=== PATIENT | male | born 1955 | race Caucasian/White ===

== ENCOUNTER 2022-02-20 12:08 | Inpatient (IN) | payer OTHER, MEDICARE ==
[2022-02-20 17:33] VITALS: BMI 23.1
[2022-02-20] MEDS ORDERED: Acetaminophen 325 MG TAB PO PRN (19:18)
[2022-02-20] MEDS ORDERED: predniSONE 5 MG TAB PO SCH (21:00)
[2022-02-20] MEDS: Megestrol Acetate 400 MG/10 ML UDCUP PO SCH (21:07)
[2022-02-20] MEDS: Lantus 1000 UNITS/10 ML VIAL SC SCH (21:08)
[2022-02-20] MEDS: Gabapentin 300 MG CAP PO SCH (21:08)
[2022-02-20] MEDS: Atorvastatin Calcium 40 MG TAB PO SCH (21:08)
[2022-02-20] MEDS: predniSONE 5 MG TAB PO SCH (21:09)
[2022-02-20] MEDS: Midodrine HCl 2.5 MG TAB PO SCH (21:10)
[2022-02-20] MEDS: metFORMIN 500 MG TAB PO SCH (21:10)
[2022-02-21 05:13] LABS: #Basophils 0.1 thou/uL (0.0-0.2); #Eosinphils 0.1 thou/uL (0.0-0.7); #Lymphocytes 2.2 thou/uL (1.20-3.40); #Monocytes 1.1 thou/uL (0.11-0.59); #Neutrophils 13.8 thou/uL (1.40-6.50); %Basophils 0.4 % (0.0-1.0); %Eosinophils 0.7 % (0.0-10.0); %Lymphocytes 12.6 % (21.0-51.0); %Monocytes 6.5 % (0.0-10.0); %Neutrophils 79.8 % (42.0-75.0); Hemoglobin 7.8 g/dL (14.0-18.0); Mean Corpuscular HGB CONC 32.5 g/dL (32.0-36.0); Mean Corpuscular Hemoglobin 29.7 pg (27.0-31.0); Mean Corpuscular Volume 91.4 fL (78.0-98.0); Mean Platelet Volume 8.8 fL (7.4-10.4); Platelet Count 250 thou/uL (130-400); RBC Distribution Width 15.4 % (11.5-14.5); Red Blood Cell (RBC) Count 2.63 mill/uL (4.70-6.10); White Blood Cell (WBC) Count 17.3 thou/uL (4.8-10.8)
[2022-02-21 05:31] LABS: ALT (SGPT) 8 U/L (8-55); AST (SGOT) 12 U/L (5-34); Albumin 2.8 g/dL (3.4-4.8); Alkaline Phosphatase 64 U/L (40-110); Anion Gap 14 mmol/L (10-20); BUN (Urea Nitrogen) 22 mg/dL (8.4-25.7); Bilirubin, Total 0.3 mg/dL (0.2-1.2); Calc. Creatinine Clearance 87 mL/min (70-130); Calcium 8.1 mg/dL (7.8-10.44); Carbon Dioxide 20 mmol/L (23-31); Cardiac Risk 5.1 (Less than 4.5); Chloride 110 mmol/L (98-107); Cholesterol 117 mg/dl (< 200 Desired); Estimated GFR 91; Globulin 3.7 g/dL (2.4-3.5); Glucose 142 mg/dL (80-115); HDL Cholesterol 23 mg/dL (>60 Neg Risk); LDL Cholesterol, Calculated 61 mg/dL; Potassium 4.5 mmol/L (3.5-5.1); Protein, Total 6.5 g/dL (5.8-8.1); Sodium 139 mmol/L (136-145); Triglycerides 166 mg/dL (Less than 150)
[2022-02-21] MEDS: metFORMIN 500 MG TAB PO SCH ×2 (08:28→20:46)
[2022-02-21] MEDS: Midodrine HCl 2.5 MG TAB PO SCH ×3 (08:28→20:50)
[2022-02-21] MEDS: Gabapentin 300 MG CAP PO SCH ×2 (08:28→20:46)
[2022-02-21] MEDS: Aspirin 81 mg Enteric Coated Tablet PO SCH (08:29)
[2022-02-21] MEDS: glipiZIDE 5 MG TAB PO SCH ×2 (08:29→17:17)
[2022-02-21] MEDS: Megestrol Acetate 400 MG/10 ML UDCUP PO SCH ×2 (08:29→20:53)
[2022-02-21] MEDS: predniSONE 5 MG TAB PO SCH ×2 (08:29→20:46)
[2022-02-21 11:22] LABS: Hemoglobin A1c 8.3 % (4.0-6.0)
[2022-02-21] MEDS: HYDROcodone/Acetaminophen 5/325 mg Tablet PO PRN (14:25)
[2022-02-21] MEDS: Heparin 5,000 UNITS/ML VIAL SC SCH ×2 (14:26→20:51)
[2022-02-21] MEDS: Atorvastatin Calcium 40 MG TAB PO SCH (20:47)
[2022-02-21] MEDS: Lantus 1000 UNITS/10 ML VIAL SC SCH (20:51)
[2022-02-22] MEDS: Heparin 5,000 UNITS/ML VIAL SC SCH ×3 (08:06→20:06)
[2022-02-22] MEDS: Gabapentin 300 MG CAP PO SCH ×2 (08:06→20:21)
[2022-02-22] MEDS: Zinc Sulfate 220 MG CAP PO SCH (08:06)
[2022-02-22] MEDS: Megestrol Acetate 400 MG/10 ML UDCUP PO SCH ×2 (08:06→22:05)
[2022-02-22] MEDS: Aspirin 81 mg Enteric Coated Tablet PO SCH (08:06)
[2022-02-22] MEDS: metFORMIN 500 MG TAB PO SCH ×2 (08:07→20:20)
[2022-02-22] MEDS: glipiZIDE 5 MG TAB PO SCH ×2 (08:07→15:41)
[2022-02-22] MEDS: Midodrine HCl 2.5 MG TAB PO SCH ×3 (08:07→20:21)
[2022-02-22] MEDS: predniSONE 5 MG TAB PO SCH ×2 (08:07→20:20)
[2022-02-22] MEDS: HYDROcodone/Acetaminophen 5/325 mg Tablet PO PRN (17:50)
[2022-02-22] MEDS: Atorvastatin Calcium 40 MG TAB PO SCH (20:22)
[2022-02-22] MEDS: Lantus 1000 UNITS/10 ML VIAL SC SCH (20:32)
[2022-02-23] MEDS: HYDROcodone/Acetaminophen 5/325 mg Tablet PO PRN ×2 (09:00→19:16)
[2022-02-23] MEDS: Megestrol Acetate 400 MG/10 ML UDCUP PO SCH ×2 (09:00→20:39)
[2022-02-23] MEDS: Midodrine HCl 2.5 MG TAB PO SCH ×3 (09:00→20:38)
[2022-02-23] MEDS: Zinc Sulfate 220 MG CAP PO SCH (09:00)
[2022-02-23] MEDS: Aspirin 81 mg Enteric Coated Tablet PO SCH (09:01)
[2022-02-23] MEDS: Gabapentin 300 MG CAP PO SCH ×2 (09:01→20:35)
[2022-02-23] MEDS: Heparin 5,000 UNITS/ML VIAL SC SCH ×3 (09:01→20:19)
[2022-02-23] MEDS: glipiZIDE 5 MG TAB PO SCH ×2 (09:01→16:03)
[2022-02-23] MEDS: predniSONE 5 MG TAB PO SCH ×2 (09:02→20:37)
[2022-02-23] MEDS: metFORMIN 500 MG TAB PO SCH ×3 (09:02→21:02)
[2022-02-23] MEDS: Atorvastatin Calcium 40 MG TAB PO SCH (20:35)
[2022-02-23] MEDS: Lantus 1000 UNITS/10 ML VIAL SC SCH (21:01)
[2022-02-24] MEDS: Megestrol Acetate 400 MG/10 ML UDCUP PO SCH ×2 (08:12→21:36)
[2022-02-24] MEDS: Zinc Sulfate 220 MG CAP PO SCH (08:12)
[2022-02-24] MEDS: Midodrine HCl 2.5 MG TAB PO SCH ×3 (08:12→21:37)
[2022-02-24] MEDS: Gabapentin 300 MG CAP PO SCH ×2 (08:13→21:37)
[2022-02-24] MEDS: Aspirin 81 mg Enteric Coated Tablet PO SCH (08:13)
[2022-02-24] MEDS: Heparin 5,000 UNITS/ML VIAL SC SCH ×3 (08:13→21:41)
[2022-02-24] MEDS: predniSONE 5 MG TAB PO SCH ×2 (08:13→21:37)
[2022-02-24] MEDS: metFORMIN 500 MG TAB PO SCH ×2 (08:13→17:25)
[2022-02-24] MEDS: Lantus 1000 UNITS/10 ML VIAL SC SCH (08:14)
[2022-02-24] MEDS: HYDROcodone/Acetaminophen 5/325 mg Tablet PO PRN (21:38)
[2022-02-24] MEDS: Atorvastatin Calcium 40 MG TAB PO SCH (21:39)
[2022-02-25 05:40] LABS: #Basophils 0.1 thou/uL (0.0-0.2); #Eosinphils 0.1 thou/uL (0.0-0.7); #Lymphocytes 2.3 thou/uL (1.20-3.40); #Monocytes 0.9 thou/uL (0.11-0.59); #Neutrophils 12.6 thou/uL (1.40-6.50); %Basophils 0.7 % (0.0-1.0); %Eosinophils 0.5 % (0.0-10.0); %Lymphocytes 14.3 % (21.0-51.0); %Monocytes 5.4 % (0.0-10.0); %Neutrophils 79.1 % (42.0-75.0); Hemoglobin 8.6 g/dL (14.0-18.0); Mean Corpuscular HGB CONC 31.7 g/dL (32.0-36.0); Mean Corpuscular Volume 91.6 fL (78.0-98.0); Mean Platelet Volume 8.5 fL (7.4-10.4); Platelet Count 279 thou/uL (130-400); RBC Distribution Width 16.1 % (11.5-14.5); Red Blood Cell (RBC) Count 2.96 mill/uL (4.70-6.10); White Blood Cell (WBC) Count 15.9 thou/uL (4.8-10.8)
[2022-02-25 05:58] LABS: Anion Gap 17 mmol/L (10-20); BUN (Urea Nitrogen) 26 mg/dL (8.4-25.7); Calc. Creatinine Clearance 87 mL/min (70-130); Calcium 8.6 mg/dL (7.8-10.44); Carbon Dioxide 18 mmol/L (23-31); Chloride 110 mmol/L (98-107); Estimated GFR 91; Glucose 115 mg/dL (80-115); Potassium 4.9 mmol/L (3.5-5.1); Sodium 140 mmol/L (136-145)
[2022-02-25] MEDS: predniSONE 5 MG TAB PO SCH ×2 (08:14→21:42)
[2022-02-25] MEDS: Zinc Sulfate 220 MG CAP PO SCH (08:14)
[2022-02-25] MEDS: Aspirin 81 mg Enteric Coated Tablet PO SCH (08:14)
[2022-02-25] MEDS: Megestrol Acetate 400 MG/10 ML UDCUP PO SCH ×2 (08:14→21:42)
[2022-02-25] MEDS: Gabapentin 300 MG CAP PO SCH ×2 (08:14→21:42)
[2022-02-25] MEDS: metFORMIN 500 MG TAB PO SCH ×3 (08:14→17:06)
[2022-02-25] MEDS: Midodrine HCl 2.5 MG TAB PO SCH ×3 (08:15→21:41)
[2022-02-25] MEDS: Heparin 5,000 UNITS/ML VIAL SC SCH ×3 (08:15→21:41)
[2022-02-25] MEDS: Lantus 1000 UNITS/10 ML VIAL SC SCH (08:15)
[2022-02-25] MEDS: HYDROcodone/Acetaminophen 5/325 mg Tablet PO PRN (21:21)
[2022-02-25] MEDS: Atorvastatin Calcium 40 MG TAB PO SCH (21:42)
[2022-02-26] MEDS: Heparin 5,000 UNITS/ML VIAL SC SCH ×3 (08:03→21:36)
[2022-02-26] MEDS: Megestrol Acetate 400 MG/10 ML UDCUP PO SCH ×2 (08:07→21:36)
[2022-02-26] MEDS: Aspirin 81 mg Enteric Coated Tablet PO SCH (08:07)
[2022-02-26] MEDS: predniSONE 5 MG TAB PO SCH ×2 (08:08→21:37)
[2022-02-26] MEDS: Zinc Sulfate 220 MG CAP PO SCH (08:08)
[2022-02-26] MEDS: metFORMIN 500 MG TAB PO SCH ×2 (08:08→16:53)
[2022-02-26] MEDS: Gabapentin 300 MG CAP PO SCH ×2 (08:08→21:37)
[2022-02-26] MEDS: Midodrine HCl 2.5 MG TAB PO SCH ×3 (08:08→21:38)
[2022-02-26] MEDS: Lantus 1000 UNITS/10 ML VIAL SC SCH (08:08)
[2022-02-26] MEDS: HYDROcodone/Acetaminophen 5/325 mg Tablet PO PRN ×2 (12:12→21:38)
[2022-02-26] MEDS: Atorvastatin Calcium 40 MG TAB PO SCH (21:38)
[2022-02-27 05:23] LABS: #Basophils 0.1 thou/uL (0.0-0.2); #Eosinphils 0.2 thou/uL (0.0-0.7); #Lymphocytes 2.4 thou/uL (1.20-3.40); #Neutrophils 12.5 thou/uL (1.40-6.50); %Basophils 0.6 % (0.0-1.0); %Lymphocytes 14.6 % (21.0-51.0); %Monocytes 5.9 % (0.0-10.0); %Neutrophils 77.9 % (42.0-75.0); Hemoglobin 8.7 g/dL (14.0-18.0); Mean Corpuscular HGB CONC 31.4 g/dL (32.0-36.0); Mean Corpuscular Hemoglobin 29.1 pg (27.0-31.0); Mean Corpuscular Volume 92.7 fL (78.0-98.0); Mean Platelet Volume 8.5 fL (7.4-10.4); Platelet Count 264 thou/uL (130-400); RBC Distribution Width 16.6 % (11.5-14.5); Red Blood Cell (RBC) Count 2.99 mill/uL (4.70-6.10); White Blood Cell (WBC) Count 16.1 thou/uL (4.8-10.8)
[2022-02-27 05:39] LABS: Anion Gap 16 mmol/L (10-20); BUN (Urea Nitrogen) 34 mg/dL (8.4-25.7); CRP (Inflammatory) 2.11 mg/dL (= or < 0.5); Calc. Creatinine Clearance 93 mL/min (70-130); Calcium 8.4 mg/dL (7.8-10.44); Carbon Dioxide 18 mmol/L (23-31); Chloride 112 mmol/L (98-107); Estimated GFR 96; Glucose 146 mg/dL (80-115); Potassium 4.9 mmol/L (3.5-5.1); Sodium 141 mmol/L (136-145)
[2022-02-27] MEDS: Midodrine HCl 2.5 MG TAB PO SCH ×3 (08:29→20:55)
[2022-02-27] MEDS: Aspirin 81 mg Enteric Coated Tablet PO SCH (08:29)
[2022-02-27] MEDS: Zinc Sulfate 220 MG CAP PO SCH (08:29)
[2022-02-27] MEDS: Gabapentin 300 MG CAP PO SCH ×2 (08:29→20:54)
[2022-02-27] MEDS: metFORMIN 500 MG TAB PO SCH ×2 (08:29→17:14)
[2022-02-27] MEDS: Lantus 1000 UNITS/10 ML VIAL SC SCH (08:30)
[2022-02-27] MEDS: Heparin 5,000 UNITS/ML VIAL SC SCH ×3 (08:30→20:55)
[2022-02-27] MEDS: predniSONE 5 MG TAB PO SCH ×2 (08:30→20:53)
[2022-02-27] MEDS: Megestrol Acetate 400 MG/10 ML UDCUP PO SCH ×2 (08:30→20:53)
[2022-02-27] MEDS: HYDROcodone/Acetaminophen 5/325 mg Tablet PO PRN (08:33)
[2022-02-27] MEDS: Atorvastatin Calcium 40 MG TAB PO SCH (20:54)
[2022-02-28] MEDS ORDERED: Ondansetron ODT 4 MG TAB ONE (05:36)
[2022-02-28] MEDS: Ondansetron ODT 4 MG TAB PO PRN ×3 (05:44→21:17)
[2022-02-28] MEDS: HYDROcodone/Acetaminophen 5/325 mg Tablet PO PRN ×2 (06:02→09:27)
[2022-02-28] MEDS: Zinc Sulfate 220 MG CAP PO SCH (08:27)
[2022-02-28] MEDS: Aspirin 81 mg Enteric Coated Tablet PO SCH (08:27)
[2022-02-28] MEDS: predniSONE 5 MG TAB PO SCH ×2 (08:27→21:15)
[2022-02-28] MEDS: Heparin 5,000 UNITS/ML VIAL SC SCH ×3 (08:27→21:15)
[2022-02-28] MEDS: Megestrol Acetate 400 MG/10 ML UDCUP PO SCH ×2 (08:27→21:15)
[2022-02-28] MEDS: Gabapentin 300 MG CAP PO SCH ×2 (08:27→21:14)
[2022-02-28] MEDS: Midodrine HCl 2.5 MG TAB PO SCH ×3 (08:27→21:14)
[2022-02-28] MEDS: metFORMIN 500 MG TAB PO SCH ×2 (08:27→17:17)
[2022-02-28] MEDS: Lantus 1000 UNITS/10 ML VIAL SC SCH (08:28)
[2022-02-28] MEDS ORDERED: HYDROcodone/Acetaminophen 5/325 mg Tablet PO SCH (09:30)
[2022-02-28] MEDS: Atorvastatin Calcium 40 MG TAB PO SCH (21:14)
[2022-03-01] MEDS: Lantus 1000 UNITS/10 ML VIAL SC SCH (09:18)
[2022-03-01] MEDS: Heparin 5,000 UNITS/ML VIAL SC SCH ×4 (09:18→22:37)
[2022-03-01] MEDS: Midodrine HCl 2.5 MG TAB PO SCH ×4 (09:19→22:32)
[2022-03-01] MEDS: Zinc Sulfate 220 MG CAP PO SCH (09:19)
[2022-03-01] MEDS: metFORMIN 500 MG TAB PO SCH ×2 (09:19→17:07)
[2022-03-01] MEDS: Aspirin 81 mg Enteric Coated Tablet PO SCH (09:19)
[2022-03-01] MEDS: Gabapentin 300 MG CAP PO SCH ×2 (09:19→20:29)
[2022-03-01] MEDS: Megestrol Acetate 400 MG/10 ML UDCUP PO SCH ×2 (09:19→20:43)
[2022-03-01] MEDS: predniSONE 5 MG TAB PO SCH ×2 (09:19→20:31)
[2022-03-01] MEDS: Atorvastatin Calcium 40 MG TAB PO SCH (20:30)
[2022-03-01] MEDS: HYDROcodone/Acetaminophen 5/325 mg Tablet PO PRN (22:36)
[2022-03-02] MEDS: Megestrol Acetate 400 MG/10 ML UDCUP PO SCH ×2 (09:31→20:56)
[2022-03-02] MEDS: Zinc Sulfate 220 MG CAP PO SCH (09:32)
[2022-03-02] MEDS: Aspirin 81 mg Enteric Coated Tablet PO SCH (09:32)
[2022-03-02] MEDS: Midodrine HCl 2.5 MG TAB PO SCH ×3 (09:32→20:56)
[2022-03-02] MEDS: predniSONE 5 MG TAB PO SCH ×2 (09:32→20:56)
[2022-03-02] MEDS: metFORMIN 500 MG TAB PO SCH ×2 (09:32→17:17)
[2022-03-02] MEDS: Heparin 5,000 UNITS/ML VIAL SC SCH ×3 (09:32→21:35)
[2022-03-02] MEDS: Gabapentin 300 MG CAP PO SCH ×2 (09:32→20:55)
[2022-03-02] MEDS: Lantus 1000 UNITS/10 ML VIAL SC SCH (09:33)
[2022-03-02] MEDS: HYDROcodone/Acetaminophen 5/325 mg Tablet PO PRN (17:17)
[2022-03-02] MEDS: Atorvastatin Calcium 40 MG TAB PO SCH (20:55)
[2022-03-03 07:00] VITALS: TEMP 98.1
[2022-03-03] MEDS: predniSONE 5 MG TAB PO SCH (08:14)
[2022-03-03] MEDS: Gabapentin 300 MG CAP PO SCH (08:15)
[2022-03-03] MEDS: Zinc Sulfate 220 MG CAP PO SCH (08:15)
[2022-03-03] MEDS: metFORMIN 500 MG TAB PO SCH (08:15)
[2022-03-03] MEDS: Lantus 1000 UNITS/10 ML VIAL SC SCH (08:15)
[2022-03-03] MEDS: Midodrine HCl 2.5 MG TAB PO SCH ×2 (08:15→14:55)
[2022-03-03] MEDS: Megestrol Acetate 400 MG/10 ML UDCUP PO SCH (08:15)
[2022-03-03] MEDS: Aspirin 81 mg Enteric Coated Tablet PO SCH (08:15)
[2022-03-03] MEDS: Heparin 5,000 UNITS/ML VIAL SC SCH ×2 (08:16→14:53)
[2022-03-03] MEDS: HYDROcodone/Acetaminophen 5/325 mg Tablet PO PRN (10:56)
[2022-03-03 14:58] VITALS: BP 91/46
== END 2022-03-03 15:15 | disposition left against medical advice (07) | DRG 947 ==
LOC: MADMS 17:22
PROVIDERS: ADMIT Family Medicine; ATTEND Family Medicine
DX: R53.1 Weakness (principal); L89.154 Pressure ulcer of sacral region, stage 4; E27.40 Unspecified adrenocortical insufficiency; Z20.822 Contact with and (suspected) exposure to COVID-19; R53.81 Other malaise; E78.5 Hyperlipidemia, unspecified; D64.9 Anemia, unspecified; R33.9 Retention of urine, unspecified; I10 Essential (primary) hypertension; E11.9 Type 2 diabetes mellitus without complications; Z79.82 Long term (current) use of aspirin; Z79.899 Other long term (current) drug therapy; Z79.4 Long term (current) use of insulin; Z79.84 Long term (current) use of oral hypoglycemic drugs; Z79.52 Long term (current) use of systemic steroids; Z89.432 Acquired absence of left foot
CPT/HCPCS: 36415; 36416; 80048; 80053; 80061; 83036; 84443; 85025; 86140; 90471; 90732; 97602; G0009; J1644; J1815; J1956; J7512; Q0162; U0003; U0005

== ENCOUNTER 2022-03-12 17:36 | Inpatient (IN) | payer OTHER, MEDICARE ==
[2022-03-12] MEDS ORDERED: Dextrose 50% Abboject 50 ML SYRINGE IVP PRN (21:15)
[2022-03-12] MEDS ORDERED: Dextrose 5% in Water 1,000 ML IV PRN (21:15)
[2022-03-12] MEDS: metroNIDAZOLE 250 MG TAB PO SCH (21:20)
[2022-03-12] MEDS: HYDROcodone/Acetaminophen 5/325 mg Tablet PO PRN (21:21)
[2022-03-12] MEDS: HumaLOG 300 UNITS/3 ML VIAL SC PRN (21:36)
[2022-03-12] MEDS: Vancomycin HCl 1 GM in Sodium Chloride 0.9% 250 ML 250 ML IVPB SCH (22:55)
[2022-03-13] MEDS: Cefepime 1 GM in Sodium Chloride 0.9% 100 ML IVPB SCH ×4 (01:31→23:28)
[2022-03-13] MEDS: HYDROcodone/Acetaminophen 5/325 mg Tablet PO PRN ×4 (02:41→22:07)
[2022-03-13 05:24] LABS: #Basophils 0.1 thou/uL (0.0-0.2); #Eosinphils 0.5 thou/uL (0.0-0.7); #Lymphocytes 2.1 thou/uL (1.20-3.40); #Monocytes 0.8 thou/uL (0.11-0.59); %Eosinophils 5.7 % (0.0-10.0); %Lymphocytes 21.8 % (21.0-51.0); %Monocytes 8.6 % (0.0-10.0); %Neutrophils 62.9 % (42.0-75.0); Hemoglobin 8.9 g/dL (14.0-18.0); Mean Corpuscular HGB CONC 31.7 g/dL (32.0-36.0); Mean Corpuscular Hemoglobin 29.2 pg (27.0-31.0); Mean Corpuscular Volume 91.9 fL (78.0-98.0); Mean Platelet Volume 8.7 fL (7.4-10.4); Platelet Count 243 thou/uL (130-400); RBC Distribution Width 15.8 % (11.5-14.5); Red Blood Cell (RBC) Count 3.07 mill/uL (4.70-6.10); White Blood Cell (WBC) Count 9.5 thou/uL (4.8-10.8)
[2022-03-13 05:45] LABS: ALT (SGPT) 15 U/L (8-55); AST (SGOT) 16 U/L (5-34); Albumin 2.5 g/dL (3.4-4.8); Alkaline Phosphatase 71 U/L (40-110); Anion Gap 13 mmol/L (10-20); BUN (Urea Nitrogen) 10 mg/dL (8.4-25.7); Bilirubin, Total 0.2 mg/dL (0.2-1.2); Calc. Creatinine Clearance 121 mL/min (70-130); Calcium 8.1 mg/dL (7.8-10.44); Carbon Dioxide 19 mmol/L (23-31); Chloride 110 mmol/L (98-107); Estimated GFR 103; Globulin 3.4 g/dL (2.4-3.5); Glucose 146 mg/dL (80-115); Potassium 3.8 mmol/L (3.5-5.1); Protein, Total 5.9 g/dL (5.8-8.1); Sodium 138 mmol/L (136-145)
[2022-03-13] MEDS: metroNIDAZOLE 250 MG TAB PO SCH ×3 (06:10→21:13)
[2022-03-13] MEDS: Enoxaparin Sodium 40 MG/0.4 ML SYRINGE SC SCH (07:53)
[2022-03-13] MEDS ORDERED: metFORMIN 500 MG TAB PO SCH (08:00)
[2022-03-13] MEDS ORDERED: Enoxaparin Sodium 40 MG/0.4 ML SYRINGE SC SCH (09:00)
[2022-03-13] MEDS: Vancomycin HCl 1 GM in Sodium Chloride 0.9% 250 ML 250 ML IVPB SCH (10:47)
[2022-03-13] MEDS: metFORMIN 500 MG TAB PO SCH (16:21)
[2022-03-13] MEDS: HumaLOG 300 UNITS/3 ML VIAL SC PRN (21:11)
[2022-03-14] MEDS: Vancomycin HCl 1 GM in Sodium Chloride 0.9% 250 ML 250 ML IVPB SCH ×3 (00:19→22:35)
[2022-03-14] MEDS: HYDROcodone/Acetaminophen 5/325 mg Tablet PO PRN ×3 (05:37→20:47)
[2022-03-14] MEDS: metroNIDAZOLE 250 MG TAB PO SCH ×4 (05:37→20:42)
[2022-03-14] MEDS: Enoxaparin Sodium 40 MG/0.4 ML SYRINGE SC SCH (08:14)
[2022-03-14] MEDS: metFORMIN 500 MG TAB PO SCH ×2 (08:14→16:45)
[2022-03-14] MEDS: Cefepime 1 GM in Sodium Chloride 0.9% 100 ML IVPB SCH ×2 (08:14→16:45)
[2022-03-14] MEDS: HumaLOG 300 UNITS/3 ML VIAL SC PRN (08:15)
[2022-03-14] MEDS ORDERED: HYDROcodone/Acetaminophen 5/325 mg Tablet PO SCH (10:00)
[2022-03-14 10:20] LABS: Vancomycin, Trough 18.6 ug/mL
[2022-03-15] MEDS: Cefepime 1 GM in Sodium Chloride 0.9% 100 ML IVPB SCH ×3 (00:45→17:00)
[2022-03-15] MEDS: metroNIDAZOLE 250 MG TAB PO SCH ×3 (06:05→20:42)
[2022-03-15] MEDS: metFORMIN 500 MG TAB PO SCH ×2 (08:42→17:00)
[2022-03-15] MEDS: Enoxaparin Sodium 40 MG/0.4 ML SYRINGE SC SCH (08:43)
[2022-03-15] MEDS: HumaLOG 300 UNITS/3 ML VIAL SC PRN ×2 (08:43→21:22)
[2022-03-15] MEDS: Vancomycin HCl 1 GM in Sodium Chloride 0.9% 250 ML 250 ML IVPB SCH ×2 (11:55→22:56)
[2022-03-15] MEDS: HYDROcodone/Acetaminophen 5/325 mg Tablet PO PRN ×2 (12:11→23:58)
[2022-03-15] MEDS: Midodrine HCl 2.5 MG TAB PO SCH ×2 (14:00→21:04)
[2022-03-15] MEDS: Mirtazapine 15 MG TAB PO SCH (20:43)
[2022-03-15] MEDS: Gabapentin 300 MG CAP PO SCH (20:44)
[2022-03-16] MEDS: Cefepime 1 GM in Sodium Chloride 0.9% 100 ML IVPB SCH ×3 (00:55→16:02)
[2022-03-16] MEDS: metroNIDAZOLE 250 MG TAB PO SCH ×4 (05:46→20:41)
[2022-03-16] MEDS: Midodrine HCl 2.5 MG TAB PO SCH ×4 (05:58→21:17)
[2022-03-16] MEDS: metFORMIN 500 MG TAB PO SCH ×2 (08:28→16:02)
[2022-03-16] MEDS: Enoxaparin Sodium 40 MG/0.4 ML SYRINGE SC SCH (08:28)
[2022-03-16] MEDS: Gabapentin 300 MG CAP PO SCH ×2 (08:28→20:39)
[2022-03-16] MEDS: HumaLOG 300 UNITS/3 ML VIAL SC PRN ×2 (09:33→21:59)
[2022-03-16] MEDS: Vancomycin HCl 1 GM in Sodium Chloride 0.9% 250 ML 250 ML IVPB SCH ×2 (11:28→22:16)
[2022-03-16] MEDS: HYDROcodone/Acetaminophen 5/325 mg Tablet PO PRN ×2 (17:16→22:14)
[2022-03-16] MEDS: Mirtazapine 15 MG TAB PO SCH (20:41)
[2022-03-17] MEDS: Cefepime 1 GM in Sodium Chloride 0.9% 100 ML IVPB SCH ×3 (00:15→16:44)
[2022-03-17] MEDS: metroNIDAZOLE 250 MG TAB PO SCH ×3 (04:57→21:59)
[2022-03-17] MEDS: HYDROcodone/Acetaminophen 5/325 mg Tablet PO PRN ×4 (04:57→21:54)
[2022-03-17] MEDS: Midodrine HCl 2.5 MG TAB PO SCH ×3 (05:00→21:54)
[2022-03-17] MEDS: Gabapentin 300 MG CAP PO SCH ×2 (08:28→21:53)
[2022-03-17] MEDS: metFORMIN 500 MG TAB PO SCH ×2 (08:28→16:45)
[2022-03-17] MEDS: Enoxaparin Sodium 40 MG/0.4 ML SYRINGE SC SCH (08:29)
[2022-03-17] MEDS: Vancomycin HCl 1 GM in Sodium Chloride 0.9% 250 ML 250 ML IVPB SCH ×2 (11:10→23:18)
[2022-03-17] MEDS: Mirtazapine 15 MG TAB PO SCH (21:53)
[2022-03-17] MEDS: HumaLOG 300 UNITS/3 ML VIAL SC PRN (21:56)
[2022-03-18] MEDS: Cefepime 1 GM in Sodium Chloride 0.9% 100 ML IVPB SCH ×3 (01:28→16:43)
[2022-03-18] MEDS: metroNIDAZOLE 250 MG TAB PO SCH ×3 (06:25→20:36)
[2022-03-18] MEDS: Midodrine HCl 2.5 MG TAB PO SCH ×3 (06:25→23:15)
[2022-03-18] MEDS: metFORMIN 500 MG TAB PO SCH ×2 (08:12→16:43)
[2022-03-18] MEDS: Gabapentin 300 MG CAP PO SCH ×2 (08:12→20:36)
[2022-03-18] MEDS: Enoxaparin Sodium 40 MG/0.4 ML SYRINGE SC SCH (08:12)
[2022-03-18] MEDS: HumaLOG 300 UNITS/3 ML VIAL SC PRN ×2 (08:14→20:38)
[2022-03-18] MEDS: HYDROcodone/Acetaminophen 10/325 mg Tablet PO PRN ×2 (08:14→18:20)
[2022-03-18 10:37] LABS: Vancomycin, Trough 21.9 ug/mL
[2022-03-18] MEDS: Vancomycin HCl 750 MG in Sodium Chloride 0.9% 250 ML 250 ML IVPB SCH ×2 (11:13→23:15)
[2022-03-18] MEDS: Mirtazapine 15 MG TAB PO SCH (20:37)
[2022-03-19] MEDS: Cefepime 1 GM in Sodium Chloride 0.9% 100 ML IVPB SCH ×4 (01:32→23:04)
[2022-03-19] MEDS: Midodrine HCl 2.5 MG TAB PO SCH ×3 (05:17→23:04)
[2022-03-19] MEDS: metroNIDAZOLE 250 MG TAB PO SCH ×3 (05:17→21:42)
[2022-03-19 05:33] LABS: #Basophils 0.3 thou/uL (0.0-0.2); #Eosinphils 0.7 thou/uL (0.0-0.7); #Lymphocytes 1.7 thou/uL (1.20-3.40); #Monocytes 1.1 thou/uL (0.11-0.59); #Neutrophils 15.1 thou/uL (1.40-6.50); %Basophils 1.4 % (0.0-1.0); %Eosinophils 3.5 % (0.0-10.0); %Lymphocytes 9.1 % (21.0-51.0); Hemoglobin 9.6 g/dL (14.0-18.0); Mean Corpuscular HGB CONC 30.7 g/dL (32.0-36.0); Mean Corpuscular Hemoglobin 28.9 pg (27.0-31.0); Mean Corpuscular Volume 94.1 fL (78.0-98.0); Mean Platelet Volume 9.3 fL (7.4-10.4); Platelet Count 412 thou/uL (130-400); RBC Distribution Width 16.2 % (11.5-14.5); Red Blood Cell (RBC) Count 3.31 mill/uL (4.70-6.10); White Blood Cell (WBC) Count 18.9 thou/uL (4.8-10.8)
[2022-03-19 05:58] LABS: ALT (SGPT) 16 U/L (8-55); AST (SGOT) 14 U/L (5-34); Albumin 2.7 g/dL (3.4-4.8); Alkaline Phosphatase 83 U/L (40-110); Anion Gap 14 mmol/L (10-20); BUN (Urea Nitrogen) 33 mg/dL (8.4-25.7); Bilirubin, Total 0.3 mg/dL (0.2-1.2); CRP (Inflammatory) 4.46 mg/dL (= or < 0.5); Calc. Creatinine Clearance 50 mL/min (70-130); Calcium 8.7 mg/dL (7.8-10.44); Chloride 111 mmol/L (98-107); Estimated GFR 45; Globulin 3.6 g/dL (2.4-3.5); Glucose 227 mg/dL (80-115); Potassium 4.8 mmol/L (3.5-5.1); Protein, Total 6.3 g/dL (5.8-8.1); Sodium 137 mmol/L (136-145)
[2022-03-19 06:04] LABS: Carbon Dioxide 17 mmol/L (23-31)
[2022-03-19] MEDS: Gabapentin 300 MG CAP PO SCH ×2 (08:26→21:38)
[2022-03-19] MEDS: Enoxaparin Sodium 40 MG/0.4 ML SYRINGE SC SCH (08:27)
[2022-03-19] MEDS: metFORMIN 500 MG TAB PO SCH ×2 (08:27→16:56)
[2022-03-19] MEDS: HYDROcodone/Acetaminophen 10/325 mg Tablet PO PRN ×2 (08:30→21:36)
[2022-03-19] MEDS: Vancomycin HCl 750 MG in Sodium Chloride 0.9% 250 ML 250 ML IVPB SCH ×2 (11:23→23:05)
[2022-03-19] MEDS: Mirtazapine 15 MG TAB PO SCH (21:37)
[2022-03-19] MEDS: HumaLOG 300 UNITS/3 ML VIAL SC PRN (22:26)
[2022-03-19 22:34] LABS: Vancomycin, Trough 37.5 ug/mL
[2022-03-20] MEDS: metroNIDAZOLE 250 MG TAB PO SCH ×3 (05:53→21:19)
[2022-03-20] MEDS: Midodrine HCl 2.5 MG TAB PO SCH ×3 (05:56→21:19)
[2022-03-20] MEDS: Cefepime 1 GM in Sodium Chloride 0.9% 100 ML IVPB SCH ×3 (08:31→23:56)
[2022-03-20] MEDS: HumaLOG 300 UNITS/3 ML VIAL SC PRN ×2 (08:31→22:01)
[2022-03-20] MEDS: Gabapentin 300 MG CAP PO SCH ×2 (08:32→21:20)
[2022-03-20] MEDS: Enoxaparin Sodium 40 MG/0.4 ML SYRINGE SC SCH (08:33)
[2022-03-20] MEDS: metFORMIN 500 MG TAB PO SCH ×2 (08:33→17:02)
[2022-03-20] MEDS: HYDROcodone/Acetaminophen 10/325 mg Tablet PO PRN ×3 (08:42→21:18)
[2022-03-20] MEDS ORDERED: Clotrimazole 1% Cream 15 GM TUBE TOP SCH (09:45)
[2022-03-20 17:29] LABS: Bilirubin Negative (Negative); Blood, Urine Large (Negative); Glucose, Urine (Dipstick) 100 mg/dL (Negative); Ketone, Urine Negative (Negative); Leukocyte Large (Negative); Nitrite Negative (Negative); Protein, Urine (Dipstick) 100 mg/dL (Neg-Trace); Specific Gravity, Urine 1.015 (1.005-1.030); Urobilinogen 0.2 mg/dL (Less than 2)
[2022-03-20 17:31] LABS: Clarity Cloudy (Clear)
[2022-03-20 17:38] LABS: Bacteria/HPF Rare-Few HPF (None Seen); Squamous Epithelial 0-3 HPF (0-3); WBC/HPF Greater Than 50 HPF (0-3)
[2022-03-20 17:39] LABS: Calcium Oxalate Crystals 2+ HPF (None Seen); Yeast-Budding 4+ HPF (None Seen); Yeast-Hyphae 4+ HPF (None Seen)
[2022-03-20] MEDS: Mirtazapine 15 MG TAB PO SCH (21:19)
[2022-03-20] MEDS: Clotrimazole 1% Cream 15 GM TUBE TOP SCH (21:20)
[2022-03-20 22:41] LABS: Vancomycin, Random 29.1 ug/mL (See Comment)
[2022-03-20] MEDS ORDERED: Vancomycin HCl 750 MG in Sodium Chloride 0.9% 250 ML 250 ML IVPB SCH (23:00)
[2022-03-21] MEDS: HYDROcodone/Acetaminophen 10/325 mg Tablet PO PRN ×3 (05:31→21:01)
[2022-03-21] MEDS: metroNIDAZOLE 250 MG TAB PO SCH ×3 (05:32→21:00)
[2022-03-21] MEDS: Midodrine HCl 2.5 MG TAB PO SCH ×3 (05:32→20:59)
[2022-03-21] MEDS: Cefepime 1 GM in Sodium Chloride 0.9% 100 ML IVPB SCH ×2 (08:02→17:13)
[2022-03-21] MEDS: metFORMIN 500 MG TAB PO SCH ×2 (08:03→17:13)
[2022-03-21] MEDS: Gabapentin 300 MG CAP PO SCH ×2 (08:03→21:00)
[2022-03-21] MEDS: Enoxaparin Sodium 40 MG/0.4 ML SYRINGE SC SCH (08:04)
[2022-03-21] MEDS: HumaLOG 300 UNITS/3 ML VIAL SC PRN ×2 (08:04→21:45)
[2022-03-21] MEDS: Clotrimazole 1% Cream 15 GM TUBE TOP SCH ×2 (08:08→21:47)
[2022-03-21] MEDS: Fluconazole 100 MG TAB PO SCH (11:53)
[2022-03-21] MEDS: Mirtazapine 15 MG TAB PO SCH (21:00)
[2022-03-21 22:19] LABS: Vancomycin, Random 23.1 ug/mL (See Comment)
[2022-03-22] MEDS: Cefepime 1 GM in Sodium Chloride 0.9% 100 ML IVPB SCH ×3 (00:37→16:44)
[2022-03-22] MEDS: metroNIDAZOLE 250 MG TAB PO SCH ×3 (05:38→22:18)
[2022-03-22] MEDS: Midodrine HCl 2.5 MG TAB PO SCH ×3 (05:38→21:45)
[2022-03-22 06:09] LABS: Anion Gap 15 mmol/L (10-20); BUN (Urea Nitrogen) 57 mg/dL (8.4-25.7); Calc. Creatinine Clearance 34 mL/min (70-130); Calcium 9.3 mg/dL (7.8-10.44); Carbon Dioxide 17 mmol/L (23-31); Chloride 111 mmol/L (98-107); Estimated GFR 27; Glucose 209 mg/dL (80-115); Potassium 5.2 mmol/L (3.5-5.1); Sodium 138 mmol/L (136-145)
[2022-03-22] MEDS: HumaLOG 300 UNITS/3 ML VIAL SC PRN ×2 (08:16→22:13)
[2022-03-22] MEDS: Gabapentin 300 MG CAP PO SCH ×2 (08:17→21:47)
[2022-03-22] MEDS: HYDROcodone/Acetaminophen 10/325 mg Tablet PO PRN ×3 (08:17→21:46)
[2022-03-22] MEDS: metFORMIN 500 MG TAB PO SCH ×2 (08:18→16:44)
[2022-03-22] MEDS: Enoxaparin Sodium 40 MG/0.4 ML SYRINGE SC SCH (08:19)
[2022-03-22] MEDS: Clotrimazole 1% Cream 15 GM TUBE TOP SCH ×2 (08:20→22:18)
[2022-03-22] MEDS ORDERED: Fluconazole 100 MG TAB PO SCH (09:00)
[2022-03-22] MEDS: Fluconazole 100 MG TAB PO SCH (12:11)
[2022-03-22] MEDS: Mirtazapine 15 MG TAB PO SCH (21:45)
[2022-03-22 22:22] LABS: Vancomycin, Random 17.9 ug/mL (See Comment)
[2022-03-23] MEDS: Cefepime 1 GM in Sodium Chloride 0.9% 100 ML IVPB SCH ×4 (00:11→23:02)
[2022-03-23 05:47] LABS: Anion Gap 13 mmol/L (10-20); BUN (Urea Nitrogen) 60 mg/dL (8.4-25.7); Calc. Creatinine Clearance 34 mL/min (70-130); Carbon Dioxide 17 mmol/L (23-31); Chloride 113 mmol/L (98-107); Estimated GFR 28; Glucose 214 mg/dL (80-115); Potassium 5.2 mmol/L (3.5-5.1); Sodium 138 mmol/L (136-145)
[2022-03-23 05:49] LABS: Band 1 % (5-11); Eosinophils 4 % (0-10); Hemoglobin 8.5 g/dL (14.0-18.0); Lymphocytes 12 % (21-51); MDiff Complete? YES; Mean Corpuscular HGB CONC 31.4 g/dL (32.0-36.0); Mean Corpuscular Hemoglobin 28.4 pg (27.0-31.0); Mean Corpuscular Volume 90.7 fL (78.0-98.0); Mean Platelet Volume 10.7 fL (7.4-10.4); Monocytes 2 % (0-10); Neutrophil 81 % (42-75); Platelet Count 346 thou/uL (130-400); RBC Distribution Width 15.8 % (11.5-14.5); Red Blood Cell (RBC) Count 2.98 mill/uL (4.70-6.10); White Blood Cell (WBC) Count 13.2 thou/uL (4.8-10.8)
[2022-03-23] MEDS: Midodrine HCl 2.5 MG TAB PO SCH ×3 (05:51→21:26)
[2022-03-23] MEDS: metroNIDAZOLE 250 MG TAB PO SCH ×5 (05:51→20:18)
[2022-03-23] MEDS: HYDROcodone/Acetaminophen 10/325 mg Tablet PO PRN ×2 (08:07→15:43)
[2022-03-23] MEDS: Gabapentin 300 MG CAP PO SCH ×2 (08:07→20:17)
[2022-03-23] MEDS: metFORMIN 500 MG TAB PO SCH ×2 (08:08→17:03)
[2022-03-23] MEDS: Clotrimazole 1% Cream 15 GM TUBE TOP SCH ×2 (08:08→20:19)
[2022-03-23] MEDS: Enoxaparin Sodium 40 MG/0.4 ML SYRINGE SC SCH (08:09)
[2022-03-23] MEDS: HumaLOG 300 UNITS/3 ML VIAL SC PRN (08:14)
[2022-03-23] MEDS ORDERED: Vancomycin HCl 500 MG in Sodium Chloride 0.9% 100 ML IVPB SCH (09:00)
[2022-03-23] MEDS: Fluconazole 100 MG TAB PO SCH (11:49)
[2022-03-23] MEDS: Mirtazapine 15 MG TAB PO SCH (20:18)
[2022-03-24] MEDS: HYDROcodone/Acetaminophen 10/325 mg Tablet PO PRN ×3 (03:23→20:03)
[2022-03-24] MEDS: metroNIDAZOLE 250 MG TAB PO SCH ×3 (05:31→20:06)
[2022-03-24] MEDS: Midodrine HCl 2.5 MG TAB PO SCH ×3 (05:32→21:42)
[2022-03-24 08:24] LABS: Vancomycin, Random 14.7 ug/mL (See Comment)
[2022-03-24] MEDS: Gabapentin 300 MG CAP PO SCH ×2 (08:53→20:03)
[2022-03-24] MEDS: metFORMIN 500 MG TAB PO SCH ×2 (08:53→16:46)
[2022-03-24] MEDS: Enoxaparin Sodium 40 MG/0.4 ML SYRINGE SC SCH (08:53)
[2022-03-24] MEDS: Cefepime 1 GM in Sodium Chloride 0.9% 100 ML IVPB SCH ×3 (08:54→23:21)
[2022-03-24] MEDS: Clotrimazole 1% Cream 15 GM TUBE TOP SCH ×2 (08:54→20:02)
[2022-03-24] MEDS: HumaLOG 300 UNITS/3 ML VIAL SC PRN ×2 (08:55→20:39)
[2022-03-24 09:20] VITALS: BMI 24.3
[2022-03-24] MEDS ORDERED: Vancomycin HCl 500 MG in Sodium Chloride 0.9% 100 ML IVPB SCH (11:15)
[2022-03-24] MEDS: Fluconazole 100 MG TAB PO SCH (11:17)
[2022-03-24] MEDS: Acetaminophen 325 MG TAB PO PRN (14:25)
[2022-03-24] MEDS: Mirtazapine 15 MG TAB PO SCH (20:02)
[2022-03-25] MEDS: metroNIDAZOLE 250 MG TAB PO SCH ×3 (05:16→21:26)
[2022-03-25] MEDS: Midodrine HCl 2.5 MG TAB PO SCH ×3 (05:16→21:25)
[2022-03-25] MEDS: HumaLOG 300 UNITS/3 ML VIAL SC PRN ×2 (07:56→17:15)
[2022-03-25] MEDS: HYDROcodone/Acetaminophen 10/325 mg Tablet PO PRN ×2 (07:59→15:03)
[2022-03-25] MEDS: Gabapentin 300 MG CAP PO SCH ×2 (08:00→21:26)
[2022-03-25] MEDS: Enoxaparin Sodium 40 MG/0.4 ML SYRINGE SC SCH (08:01)
[2022-03-25] MEDS: Clotrimazole 1% Cream 15 GM TUBE TOP SCH ×2 (08:02→21:25)
[2022-03-25 10:22] LABS: Vancomycin, Random 16.8 ug/mL (See Comment)
[2022-03-25] MEDS ORDERED: Vancomycin HCl 500 MG in Sodium Chloride 0.9% 100 ML IVPB SCH (11:15)
[2022-03-25] MEDS: Fluconazole 100 MG TAB PO SCH (12:05)
[2022-03-25] MEDS ORDERED: HumaLOG 300 UNITS/3 ML VIAL SC PRN (13:45)
[2022-03-25] MEDS: Acetaminophen 325 MG TAB PO PRN ×2 (15:21→21:30)
[2022-03-25 16:32] LABS: Anion Gap 18 mmol/L (10-20); BUN (Urea Nitrogen) 74 mg/dL (8.4-25.7); Calc. Creatinine Clearance 31 mL/min (70-130); Calcium 9.4 mg/dL (7.8-10.44); Carbon Dioxide 14 mmol/L (23-31); Chloride 113 mmol/L (98-107); Estimated GFR 24; Glucose 332 mg/dL (80-115); Potassium 4.7 mmol/L (3.5-5.1); Sodium 140 mmol/L (136-145)
[2022-03-25 16:41] LABS: Band 3 % (5-11); Eosinophils 6 % (0-10); Hemoglobin 8.9 g/dL (14.0-18.0); Hypochromia SLIGHT = 6-15 cells (100X) (0-5/hpf); Lymphocytes 6 % (21-51); MDiff Complete? YES; Mean Corpuscular HGB CONC 30.4 g/dL (32.0-36.0); Mean Corpuscular Volume 92.2 fL (78.0-98.0); Mean Platelet Volume 11.1 fL (7.4-10.4); Metamyelocyte 1 % (0-0); Monocytes 2 % (0-10); Myelocyte 1 % (0-0); Neutrophil 72 % (42-75); Platelet Count 325 thou/uL (130-400); Platelet Morphology Comment Appears Adequate; Polychromasia SLIGHT = 2-3 cells (100X) (0-2/hpf); RBC Distribution Width 16.1 % (11.5-14.5); Reactive Lymphocytes 9 % (0-10); Red Blood Cell (RBC) Count 3.19 mill/uL (4.70-6.10); White Blood Cell (WBC) Count 15.7 thou/uL (4.8-10.8)
[2022-03-25 16:53] LABS: SARS-CoV-2 NAA Rapid Test Not Detected (NotDetected)
[2022-03-25 17:56] LABS: Bilirubin Negative (Negative); Blood, Urine Small (Negative); Glucose, Urine (Dipstick) 100 mg/dL (Negative); Ketone, Urine Negative (Negative); Leukocyte Moderate (Negative); Nitrite Negative (Negative); Protein, Urine (Dipstick) 100 mg/dL (Neg-Trace); Specific Gravity, Urine 1.015 (1.005-1.030); Urobilinogen 0.2 mg/dL (Less than 2); pH, Urine 5.5 (5.0-9.0)
[2022-03-25 17:57] LABS: Clarity Cloudy (Clear)
[2022-03-25 18:08] LABS: Bacteria/HPF Rare-Few HPF (None Seen); RBC/HPF 0-3 HPF (0-3); Squamous Epithelial 0-3 HPF (0-3); WBC/HPF Greater Than 50 HPF (0-3)
[2022-03-25 18:09] LABS: Calcium Oxalate Crystals 3+ HPF (None Seen); Yeast-Budding 4+ HPF (None Seen); Yeast-Hyphae 4+ HPF (None Seen)
[2022-03-25] MEDS ORDERED: Sodium Chloride 0.9% 1,000 ML IV SCH (18:15)
[2022-03-25] MEDS: Mirtazapine 15 MG TAB PO SCH (21:26)
[2022-03-25] MEDS: Cefepime 1 GM in Sodium Chloride 0.9% 100 ML IVPB SCH (23:22)
[2022-03-26] MEDS: Sodium Chloride 0.9% 1,000 ML IV SCH ×3 (03:10→21:38)
[2022-03-26] MEDS: Acetaminophen 325 MG TAB PO PRN ×2 (03:12→18:54)
[2022-03-26] MEDS: metroNIDAZOLE 250 MG TAB PO SCH ×3 (05:37→21:42)
[2022-03-26] MEDS: Midodrine HCl 2.5 MG TAB PO SCH ×3 (05:38→21:39)
[2022-03-26 05:41] LABS: Anion Gap 15 mmol/L (10-20); BUN (Urea Nitrogen) 68 mg/dL (8.4-25.7); Band 6 % (5-11); Calc. Creatinine Clearance 33 mL/min (70-130); Calcium 8.8 mg/dL (7.8-10.44); Carbon Dioxide 14 mmol/L (23-31); Chloride 118 mmol/L (98-107); Eosinophils 8 % (0-10); Estimated GFR 27; Glucose 211 mg/dL (80-115); Hemoglobin 7.7 g/dL (14.0-18.0); Lymphocytes 12 % (21-51); MDiff Complete? YES; Mean Corpuscular HGB CONC 31.1 g/dL (32.0-36.0); Mean Corpuscular Hemoglobin 28.4 pg (27.0-31.0); Mean Corpuscular Volume 91.3 fL (78.0-98.0); Mean Platelet Volume 9.8 fL (7.4-10.4); Monocytes 6 % (0-10); Neutrophil 68 % (42-75); Platelet Count 262 thou/uL (130-400); Potassium 4.6 mmol/L (3.5-5.1); RBC Distribution Width 16.3 % (11.5-14.5); Red Blood Cell (RBC) Count 2.71 mill/uL (4.70-6.10); Sodium 142 mmol/L (136-145); White Blood Cell (WBC) Count 16.6 thou/uL (4.8-10.8)
[2022-03-26] MEDS: HYDROcodone/Acetaminophen 10/325 mg Tablet PO PRN ×2 (07:28→17:17)
[2022-03-26] MEDS: Gabapentin 300 MG CAP PO SCH ×2 (08:07→21:39)
[2022-03-26] MEDS: Clotrimazole 1% Cream 15 GM TUBE TOP SCH ×2 (08:08→21:40)
[2022-03-26] MEDS: Enoxaparin Sodium 40 MG/0.4 ML SYRINGE SC SCH (08:08)
[2022-03-26] MEDS: Fluconazole 100 MG TAB PO SCH (08:33)
[2022-03-26] MEDS: HumaLOG 300 UNITS/3 ML VIAL SC PRN ×3 (08:37→17:19)
[2022-03-26 13:06] LABS: Vancomycin, Random 17.6 ug/mL (See Comment)
[2022-03-26] MEDS ORDERED: Vancomycin HCl 500 MG in Sodium Chloride 0.9% 100 ML IVPB SCH (13:30)
[2022-03-26] MEDS: Mirtazapine 15 MG TAB PO SCH (21:39)
[2022-03-26] MEDS: Cefepime 1 GM in Sodium Chloride 0.9% 100 ML IVPB SCH (22:18)
[2022-03-27] MEDS: Sodium Chloride 0.9% 1,000 ML IV SCH (03:30)
[2022-03-27] MEDS: Midodrine HCl 2.5 MG TAB PO SCH (05:17)
[2022-03-27] MEDS: metroNIDAZOLE 250 MG TAB PO SCH (05:18)
[2022-03-27 05:34] LABS: Band 8 % (5-11); Eosinophils 1 % (0-10); Hemoglobin 7.4 g/dL (14.0-18.0); Lymphocytes 13 % (21-51); MDiff Complete? YES; Mean Corpuscular HGB CONC 31.2 g/dL (32.0-36.0); Mean Corpuscular Hemoglobin 28.9 pg (27.0-31.0); Mean Corpuscular Volume 92.6 fL (78.0-98.0); Mean Platelet Volume 10.4 fL (7.4-10.4); Monocytes 6 % (0-10); Neutrophil 72 % (42-75); Platelet Count 284 thou/uL (130-400); RBC Distribution Width 16.3 % (11.5-14.5); Red Blood Cell (RBC) Count 2.58 mill/uL (4.70-6.10); White Blood Cell (WBC) Count 20.2 thou/uL (4.8-10.8)
[2022-03-27 05:37] LABS: Anion Gap 16 mmol/L (10-20); BUN (Urea Nitrogen) 65 mg/dL (8.4-25.7); Calc. Creatinine Clearance 30 mL/min (70-130); Calcium 8.8 mg/dL (7.8-10.44); Carbon Dioxide 14 mmol/L (23-31); Chloride 118 mmol/L (98-107); Estimated GFR 24; Glucose 341 mg/dL (80-115); Potassium 4.7 mmol/L (3.5-5.1); Sodium 143 mmol/L (136-145)
[2022-03-27] MEDS: HYDROcodone/Acetaminophen 10/325 mg Tablet PO PRN ×2 (06:17→11:32)
[2022-03-27] MEDS: Gabapentin 300 MG CAP PO SCH (08:13)
[2022-03-27] MEDS: Fluconazole 100 MG TAB PO SCH (08:13)
[2022-03-27] MEDS: HumaLOG 300 UNITS/3 ML VIAL SC PRN (08:13)
[2022-03-27 08:29] VITALS: BP 118/70; TEMP 98.5
[2022-03-27] MEDS ORDERED: Enoxaparin Sodium 30 MG/0.3 ML SYRINGE SC SCH (09:00)
[2022-03-27] MEDS ORDERED: Fluconazole In NaCl,Iso-Osm 200 MG in Premix Bag 1 BAG IVPB SCH (09:00)
[2022-03-27] MEDS: Clotrimazole 1% Cream 15 GM TUBE TOP SCH (09:02)
[2022-03-27] MEDS: Fluconazole In NaCl,Iso-Osm 200 MG in Premix Bag 1 BAG IVPB SCH ×3 (09:08→11:12)
== END 2022-03-27 11:45 | disposition short-term general hospital (02) | DRG 559 ==
LOC: MADMS 17:36
PROVIDERS: ADMIT Family Medicine; ATTEND Family Medicine
DX: Z47.81 Encounter for orthopedic aftercare following surgical amputation (principal); J18.9 Pneumonia, unspecified organism; L89.154 Pressure ulcer of sacral region, stage 4; J98.11 Atelectasis; B37.49 Other urogenital candidiasis; R71.0 Precipitous drop in hematocrit; R53.1 Weakness; Z20.822 Contact with and (suspected) exposure to COVID-19; I95.1 Orthostatic hypotension; F32.A Depression, unspecified; D63.1 Anemia in chronic kidney disease; N18.9 Chronic kidney disease, unspecified; Z66 Do not resuscitate; R33.9 Retention of urine, unspecified; Z79.899 Other long term (current) drug therapy; Z79.84 Long term (current) use of oral hypoglycemic drugs; Z89.512 Acquired absence of left leg below knee
CPT/HCPCS: 36415; 36416; 71045; 80048; 80053; 80202; 81001; 83735; 85025; 85652; 86140; 87040; 87086; 97602; J0692; J1450; J1650; J1815; J1956; J3370; J3490; J7050; U0003; U0005

== ENCOUNTER 2022-04-05 19:33 | Inpatient (IN) | payer OTHER, MEDICARE ==
[2022-04-05] MEDS ORDERED: Acetaminophen 325 MG TAB PO PRN (20:52)
[2022-04-05] MEDS ORDERED: Ondansetron ODT 4 MG TAB PO PRN (20:54)
[2022-04-05] MEDS ORDERED: Dextrose 50% Abboject 50 ML SYRINGE IVP PRN (21:00)
[2022-04-05] MEDS ORDERED: Dextrose 5% in Water 1,000 ML IV PRN (21:00)
[2022-04-05] MEDS: HYDROcodone/Acetaminophen 5/325 mg Tablet PO PRN (21:13)
[2022-04-05] MEDS: Famotidine 20 MG TAB PO SCH ×2 (22:26→22:41)
[2022-04-05] MEDS: Micafungin 100 MG in Sodium Chloride 0.9% 100 ML IVPB SCH (22:26)
[2022-04-05] MEDS: Midodrine HCl 2.5 MG TAB PO SCH (22:41)
[2022-04-05] MEDS: Lantus 1000 UNITS/10 ML VIAL SC SCH (22:42)
[2022-04-05] MEDS: Megestrol Acetate 400 MG/10 ML UDCUP PO SCH (22:53)
[2022-04-05] MEDS: Sodium Bicarbonate Tab 325 MG TAB PO SCH (22:56)
[2022-04-06 02:35] VITALS: BMI 22.1
[2022-04-06] MEDS: HYDROcodone/Acetaminophen 5/325 mg Tablet PO PRN ×2 (04:47→09:28)
[2022-04-06] MEDS ORDERED: Ondansetron PF 4 MG/2 ML Vial ONE (07:38)
[2022-04-06] MEDS: Atorvastatin Calcium 40 MG TAB PO SCH (08:40)
[2022-04-06] MEDS: Megestrol Acetate 400 MG/10 ML UDCUP PO SCH ×2 (08:40→22:30)
[2022-04-06] MEDS: Sodium Bicarbonate Tab 325 MG TAB PO SCH ×3 (08:40→22:30)
[2022-04-06] MEDS: Aspirin 81 mg Enteric Coated Tablet PO SCH (08:40)
[2022-04-06] MEDS: Famotidine 20 MG TAB PO SCH ×2 (08:40→22:29)
[2022-04-06] MEDS: Midodrine HCl 2.5 MG TAB PO SCH ×3 (08:40→22:30)
[2022-04-06] MEDS: HumaLOG 300 UNITS/3 ML VIAL SC PRN ×2 (08:57→16:37)
[2022-04-06] MEDS: Morphine 4 MG/ML VIAL SLOW IVP PRN (14:16)
[2022-04-06] MEDS: HYDROcodone/Acetaminophen 10/325 mg Tablet PO PRN (17:09)
[2022-04-06] MEDS: Micafungin 100 MG in Sodium Chloride 0.9% 100 ML IVPB SCH (21:59)
[2022-04-06] MEDS: Lantus 1000 UNITS/10 ML VIAL SC SCH (22:00)
[2022-04-07 05:29] LABS: #Basophils 0.2 thou/uL (0.0-0.2); #Eosinphils 0.2 thou/uL (0.0-0.7); #Lymphocytes 2.7 thou/uL (1.20-3.40); #Monocytes 0.9 thou/uL (0.11-0.59); #Neutrophils 10.2 thou/uL (1.40-6.50); %Basophils 1.4 % (0.0-1.0); %Eosinophils 1.5 % (0.0-10.0); %Lymphocytes 18.9 % (21.0-51.0); %Monocytes 6.1 % (0.0-10.0); %Neutrophils 72.2 % (42.0-75.0); Hemoglobin 8.8 g/dL (14.0-18.0); Mean Corpuscular HGB CONC 31.3 g/dL (32.0-36.0); Mean Corpuscular Hemoglobin 28.2 pg (27.0-31.0); Mean Corpuscular Volume 90.2 fL (78.0-98.0); Mean Platelet Volume 10.5 fL (7.4-10.4); Platelet Count 310 thou/uL (130-400); RBC Distribution Width 15.8 % (11.5-14.5); Red Blood Cell (RBC) Count 3.12 mill/uL (4.70-6.10); White Blood Cell (WBC) Count 14.1 thou/uL (4.8-10.8)
[2022-04-07 05:46] LABS: ALT (SGPT) 8 U/L (8-55); AST (SGOT) 14 U/L (5-34); Albumin 2.7 g/dL (3.4-4.8); Alkaline Phosphatase 85 U/L (40-110); Anion Gap 16 mmol/L (10-20); BUN (Urea Nitrogen) 19 mg/dL (8.4-25.7); Bilirubin, Total 0.4 mg/dL (0.2-1.2); CRP (Inflammatory) 5.48 mg/dL (= or < 0.5); Calc. Creatinine Clearance 72 mL/min (70-130); Calcium 8.5 mg/dL (7.8-10.44); Carbon Dioxide 17 mmol/L (23-31); Chloride 118 mmol/L (98-107); Estimated GFR 75; Globulin 3.9 g/dL (2.4-3.5); Glucose 177 mg/dL (80-115); Potassium 3.6 mmol/L (3.5-5.1); Protein, Total 6.6 g/dL (5.8-8.1); Sodium 147 mmol/L (136-145)
[2022-04-07] MEDS: HYDROcodone/Acetaminophen 10/325 mg Tablet PO PRN ×2 (05:58→09:39)
[2022-04-07] MEDS: Aspirin 81 mg Enteric Coated Tablet PO SCH (08:23)
[2022-04-07] MEDS: Midodrine HCl 2.5 MG TAB PO SCH ×3 (08:23→21:13)
[2022-04-07] MEDS: Atorvastatin Calcium 40 MG TAB PO SCH (08:23)
[2022-04-07] MEDS: Famotidine 20 MG TAB PO SCH ×2 (08:24→21:13)
[2022-04-07] MEDS: Megestrol Acetate 400 MG/10 ML UDCUP PO SCH ×2 (08:24→21:13)
[2022-04-07] MEDS: Enoxaparin Sodium 40 MG/0.4 ML SYRINGE SC SCH (08:24)
[2022-04-07] MEDS: Sodium Bicarbonate Tab 325 MG TAB PO SCH ×3 (08:29→21:13)
[2022-04-07] MEDS: HumaLOG 300 UNITS/3 ML VIAL SC PRN (09:40)
[2022-04-07] MEDS: Micafungin 100 MG in Sodium Chloride 0.9% 100 ML IVPB SCH (21:13)
[2022-04-07] MEDS: Lantus 1000 UNITS/10 ML VIAL SC SCH (21:40)
[2022-04-08] MEDS: Sodium Bicarbonate Tab 325 MG TAB PO SCH ×3 (08:25→21:14)
[2022-04-08] MEDS: HumaLOG 300 UNITS/3 ML VIAL SC PRN ×3 (08:25→17:25)
[2022-04-08] MEDS: Atorvastatin Calcium 40 MG TAB PO SCH (08:25)
[2022-04-08] MEDS: Megestrol Acetate 400 MG/10 ML UDCUP PO SCH ×2 (08:25→21:14)
[2022-04-08] MEDS: Famotidine 20 MG TAB PO SCH ×2 (08:25→21:13)
[2022-04-08] MEDS: Midodrine HCl 2.5 MG TAB PO SCH ×3 (08:25→21:13)
[2022-04-08] MEDS: Aspirin 81 mg Enteric Coated Tablet PO SCH (08:25)
[2022-04-08] MEDS: Enoxaparin Sodium 40 MG/0.4 ML SYRINGE SC SCH (08:26)
[2022-04-08] MEDS: HYDROcodone/Acetaminophen 10/325 mg Tablet PO PRN ×2 (08:27→22:14)
[2022-04-08] MEDS: Micafungin 100 MG in Sodium Chloride 0.9% 100 ML IVPB SCH (21:14)
[2022-04-08] MEDS: Lantus 1000 UNITS/10 ML VIAL SC SCH (21:47)
[2022-04-09] MEDS: HYDROcodone/Acetaminophen 10/325 mg Tablet PO PRN ×4 (08:05→21:09)
[2022-04-09] MEDS: Sodium Bicarbonate Tab 325 MG TAB PO SCH ×3 (08:05→21:05)
[2022-04-09] MEDS: Enoxaparin Sodium 40 MG/0.4 ML SYRINGE SC SCH (08:05)
[2022-04-09] MEDS: Famotidine 20 MG TAB PO SCH ×2 (08:06→21:05)
[2022-04-09] MEDS: Midodrine HCl 2.5 MG TAB PO SCH ×3 (08:06→21:04)
[2022-04-09] MEDS: Aspirin 81 mg Enteric Coated Tablet PO SCH (08:06)
[2022-04-09] MEDS: Atorvastatin Calcium 40 MG TAB PO SCH (08:06)
[2022-04-09] MEDS: HumaLOG 300 UNITS/3 ML VIAL SC PRN (08:10)
[2022-04-09] MEDS: Megestrol Acetate 400 MG/10 ML UDCUP PO SCH ×2 (08:11→21:05)
[2022-04-09] MEDS: Nystatin 500,000 UNITS/5 ML UDCUP PO SCH ×3 (13:15→21:05)
[2022-04-09] MEDS: Lantus 1000 UNITS/10 ML VIAL SC SCH (21:05)
[2022-04-09] MEDS: Micafungin 100 MG in Sodium Chloride 0.9% 100 ML IVPB SCH (21:05)
[2022-04-10] MEDS: HYDROcodone/Acetaminophen 10/325 mg Tablet PO PRN ×4 (05:33→20:40)
[2022-04-10] MEDS: Midodrine HCl 2.5 MG TAB PO SCH ×3 (08:07→20:41)
[2022-04-10] MEDS: Famotidine 20 MG TAB PO SCH ×2 (08:09→20:41)
[2022-04-10] MEDS: Atorvastatin Calcium 40 MG TAB PO SCH (08:09)
[2022-04-10] MEDS: Nystatin 500,000 UNITS/5 ML UDCUP PO SCH ×4 (08:09→20:40)
[2022-04-10] MEDS: Sodium Bicarbonate Tab 325 MG TAB PO SCH ×3 (08:09→20:41)
[2022-04-10] MEDS: Megestrol Acetate 400 MG/10 ML UDCUP PO SCH ×2 (08:10→20:40)
[2022-04-10] MEDS: Enoxaparin Sodium 40 MG/0.4 ML SYRINGE SC SCH (08:10)
[2022-04-10] MEDS: Aspirin 81 mg Enteric Coated Tablet PO SCH (08:11)
[2022-04-10] MEDS: HumaLOG 300 UNITS/3 ML VIAL SC PRN ×3 (08:13→17:05)
[2022-04-10] MEDS: Micafungin 100 MG in Sodium Chloride 0.9% 100 ML IVPB SCH (20:41)
[2022-04-10] MEDS: Lantus 1000 UNITS/10 ML VIAL SC SCH (21:13)
[2022-04-11 05:42] LABS: Anion Gap 13 mmol/L (10-20); BUN (Urea Nitrogen) 37 mg/dL (8.4-25.7); Calc. Creatinine Clearance 59 mL/min (70-130); Calcium 8.5 mg/dL (7.8-10.44); Carbon Dioxide 24 mmol/L (23-31); Chloride 112 mmol/L (98-107); Estimated GFR 59; Glucose 242 mg/dL (80-115); Potassium 4.4 mmol/L (3.5-5.1); Sodium 145 mmol/L (136-145)
[2022-04-11 05:46] LABS: Band 3 % (5-11); Eosinophils 3 % (0-10); Hemoglobin 9.2 g/dL (14.0-18.0); Hypochromia SLIGHT = 6-15 cells (100X) (0-5/hpf); Lymphocytes 12 % (21-51); MDiff Complete? YES; Mean Corpuscular HGB CONC 31.2 g/dL (32.0-36.0); Mean Corpuscular Hemoglobin 27.7 pg (27.0-31.0); Mean Platelet Volume 10.4 fL (7.4-10.4); Metamyelocyte 2 % (0-0); Monocytes 6 % (0-10); Neutrophil 72 % (42-75); Platelet Count 331 thou/uL (130-400); RBC Distribution Width 15.5 % (11.5-14.5); Red Blood Cell (RBC) Count 3.33 mill/uL (4.70-6.10); White Blood Cell (WBC) Count 13.9 thou/uL (4.8-10.8)
[2022-04-11] MEDS: HYDROcodone/Acetaminophen 10/325 mg Tablet PO PRN ×4 (06:10→21:08)
[2022-04-11] MEDS: Atorvastatin Calcium 40 MG TAB PO SCH (08:18)
[2022-04-11] MEDS: Megestrol Acetate 400 MG/10 ML UDCUP PO SCH ×2 (08:18→21:11)
[2022-04-11] MEDS: Aspirin 81 mg Enteric Coated Tablet PO SCH (08:18)
[2022-04-11] MEDS: Sodium Bicarbonate Tab 325 MG TAB PO SCH (08:18)
[2022-04-11] MEDS: Midodrine HCl 2.5 MG TAB PO SCH ×3 (08:18→21:10)
[2022-04-11] MEDS: Famotidine 20 MG TAB PO SCH ×2 (08:18→21:10)
[2022-04-11] MEDS: Nystatin 500,000 UNITS/5 ML UDCUP PO SCH ×4 (08:18→21:11)
[2022-04-11] MEDS: HumaLOG 300 UNITS/3 ML VIAL SC PRN ×3 (08:19→17:14)
[2022-04-11] MEDS: Enoxaparin Sodium 40 MG/0.4 ML SYRINGE SC SCH (08:19)
[2022-04-11] MEDS: Lantus 1000 UNITS/10 ML VIAL SC SCH (21:10)
[2022-04-11] MEDS: Micafungin 100 MG in Sodium Chloride 0.9% 100 ML IVPB SCH (21:11)
[2022-04-12] MEDS: HYDROcodone/Acetaminophen 10/325 mg Tablet PO PRN ×2 (05:35→19:17)
[2022-04-12] MEDS: Megestrol Acetate 400 MG/10 ML UDCUP PO SCH ×2 (09:33→21:56)
[2022-04-12] MEDS: Nystatin 500,000 UNITS/5 ML UDCUP PO SCH ×4 (09:33→21:56)
[2022-04-12] MEDS: Midodrine HCl 2.5 MG TAB PO SCH ×3 (09:34→21:56)
[2022-04-12] MEDS: Enoxaparin Sodium 40 MG/0.4 ML SYRINGE SC SCH (09:34)
[2022-04-12] MEDS: Famotidine 20 MG TAB PO SCH ×2 (09:34→21:57)
[2022-04-12] MEDS: Aspirin 81 mg Enteric Coated Tablet PO SCH (09:34)
[2022-04-12] MEDS: Atorvastatin Calcium 40 MG TAB PO SCH (09:40)
[2022-04-12] MEDS: HumaLOG 300 UNITS/3 ML VIAL SC PRN ×2 (09:42→12:21)
[2022-04-12] MEDS: Morphine 4 MG/ML VIAL SLOW IVP PRN (19:53)
[2022-04-12] MEDS: Micafungin 100 MG in Sodium Chloride 0.9% 100 ML IVPB SCH (21:10)
[2022-04-12] MEDS: Lantus 1000 UNITS/10 ML VIAL SC SCH (21:13)
[2022-04-13] MEDS: Nystatin 500,000 UNITS/5 ML UDCUP PO SCH ×4 (08:41→20:58)
[2022-04-13] MEDS: Enoxaparin Sodium 40 MG/0.4 ML SYRINGE SC SCH (08:41)
[2022-04-13] MEDS: Megestrol Acetate 400 MG/10 ML UDCUP PO SCH ×2 (08:41→20:58)
[2022-04-13] MEDS: Famotidine 20 MG TAB PO SCH ×2 (08:42→20:42)
[2022-04-13] MEDS: Midodrine HCl 2.5 MG TAB PO SCH ×3 (08:42→20:42)
[2022-04-13] MEDS: Aspirin 81 mg Enteric Coated Tablet PO SCH (08:42)
[2022-04-13] MEDS: Atorvastatin Calcium 40 MG TAB PO SCH (08:42)
[2022-04-13] MEDS: HumaLOG 300 UNITS/3 ML VIAL SC PRN (08:45)
[2022-04-13] MEDS: HYDROcodone/Acetaminophen 10/325 mg Tablet PO PRN ×2 (10:02→19:06)
[2022-04-13] MEDS: Morphine 4 MG/ML VIAL SLOW IVP PRN ×2 (10:10→23:49)
[2022-04-13] MEDS: Micafungin 100 MG in Sodium Chloride 0.9% 100 ML IVPB SCH (20:43)
[2022-04-13] MEDS: Lantus 1000 UNITS/10 ML VIAL SC SCH (20:51)
[2022-04-14 05:43] LABS: #Basophils 0.2 thou/uL (0.0-0.2); #Eosinphils 0.2 thou/uL (0.0-0.7); #Lymphocytes 3.6 thou/uL (1.20-3.40); #Monocytes 1.1 thou/uL (0.11-0.59); #Neutrophils 7.8 thou/uL (1.40-6.50); %Basophils 1.6 % (0.0-1.0); %Eosinophils 1.9 % (0.0-10.0); %Lymphocytes 27.5 % (21.0-51.0); %Monocytes 8.7 % (0.0-10.0); %Neutrophils 60.3 % (42.0-75.0); Hemoglobin 10.1 g/dL (14.0-18.0); Mean Corpuscular HGB CONC 30.6 g/dL (32.0-36.0); Mean Corpuscular Hemoglobin 27.5 pg (27.0-31.0); Mean Corpuscular Volume 90.1 fL (78.0-98.0); Mean Platelet Volume 10.2 fL (7.4-10.4); Platelet Count 303 thou/uL (130-400); RBC Distribution Width 15.7 % (11.5-14.5); Red Blood Cell (RBC) Count 3.65 mill/uL (4.70-6.10); White Blood Cell (WBC) Count 12.9 thou/uL (4.8-10.8)
[2022-04-14 05:57] LABS: ALT (SGPT) Less than 7 U/L (8-55); AST (SGOT) 10 U/L (5-34); Albumin 2.8 g/dL (3.4-4.8); Alkaline Phosphatase 86 U/L (40-110); Anion Gap 16 mmol/L (10-20); BUN (Urea Nitrogen) 40 mg/dL (8.4-25.7); Bilirubin, Total 0.3 mg/dL (0.2-1.2); CRP (Inflammatory) 1.74 mg/dL (= or < 0.5); Calc. Creatinine Clearance 65 mL/min (70-130); Calcium 9.1 mg/dL (7.8-10.44); Carbon Dioxide 22 mmol/L (23-31); Chloride 109 mmol/L (98-107); Estimated GFR 67; Globulin 4.1 g/dL (2.4-3.5); Glucose 127 mg/dL (80-115); Potassium 4.6 mmol/L (3.5-5.1); Protein, Total 6.9 g/dL (5.8-8.1); Sodium 142 mmol/L (136-145)
[2022-04-14] MEDS: Morphine 4 MG/ML VIAL SLOW IVP PRN (07:43)
[2022-04-14] MEDS: Megestrol Acetate 400 MG/10 ML UDCUP PO SCH ×2 (08:41→20:43)
[2022-04-14] MEDS: Enoxaparin Sodium 40 MG/0.4 ML SYRINGE SC SCH (08:41)
[2022-04-14] MEDS: Nystatin 500,000 UNITS/5 ML UDCUP PO SCH ×4 (08:41→20:43)
[2022-04-14] MEDS: Midodrine HCl 2.5 MG TAB PO SCH ×3 (08:42→20:43)
[2022-04-14] MEDS: Aspirin 81 mg Enteric Coated Tablet PO SCH (08:42)
[2022-04-14] MEDS: Famotidine 20 MG TAB PO SCH ×2 (08:42→20:42)
[2022-04-14] MEDS: Atorvastatin Calcium 40 MG TAB PO SCH (08:42)
[2022-04-14] MEDS: HYDROcodone/Acetaminophen 10/325 mg Tablet PO PRN (14:23)
[2022-04-14] MEDS: HumaLOG 300 UNITS/3 ML VIAL SC PRN (17:08)
[2022-04-14] MEDS: Micafungin 100 MG in Sodium Chloride 0.9% 100 ML IVPB SCH (20:42)
[2022-04-14] MEDS: Lantus 1000 UNITS/10 ML VIAL SC SCH (20:43)
[2022-04-15] MEDS ORDERED: HumaLOG 300 UNITS/3 ML VIAL SC PRN (07:56)
[2022-04-15] MEDS: Nystatin 500,000 UNITS/5 ML UDCUP PO SCH ×4 (08:01→21:37)
[2022-04-15] MEDS: Midodrine HCl 2.5 MG TAB PO SCH ×3 (08:01→21:36)
[2022-04-15] MEDS: Megestrol Acetate 400 MG/10 ML UDCUP PO SCH ×2 (08:01→21:37)
[2022-04-15] MEDS: Enoxaparin Sodium 40 MG/0.4 ML SYRINGE SC SCH (08:01)
[2022-04-15] MEDS: Famotidine 20 MG TAB PO SCH ×2 (08:02→21:37)
[2022-04-15] MEDS: Aspirin 81 mg Enteric Coated Tablet PO SCH (08:02)
[2022-04-15] MEDS: Atorvastatin Calcium 40 MG TAB PO SCH (08:02)
[2022-04-15] MEDS: HYDROcodone/Acetaminophen 10/325 mg Tablet PO PRN ×3 (08:21→21:39)
[2022-04-15] MEDS: Morphine 2 MG/ML VIAL SLOW IVP PRN (11:20)
[2022-04-15] MEDS: HumaLOG 300 UNITS/3 ML VIAL SC PRN ×2 (17:15→21:33)
[2022-04-15] MEDS: Lantus 1000 UNITS/10 ML VIAL SC SCH (21:32)
[2022-04-15] MEDS: Micafungin 100 MG in Sodium Chloride 0.9% 100 ML IVPB SCH (21:36)
[2022-04-15] MEDS: Mirtazapine 15 MG TAB PO SCH (21:37)
[2022-04-16] MEDS: HYDROcodone/Acetaminophen 10/325 mg Tablet PO PRN ×3 (06:16→17:15)
[2022-04-16] MEDS: Atorvastatin Calcium 40 MG TAB PO SCH (08:16)
[2022-04-16] MEDS: Enoxaparin Sodium 40 MG/0.4 ML SYRINGE SC SCH (08:16)
[2022-04-16] MEDS: Aspirin 81 mg Enteric Coated Tablet PO SCH (08:16)
[2022-04-16] MEDS: Nystatin 500,000 UNITS/5 ML UDCUP PO SCH ×4 (08:16→20:37)
[2022-04-16] MEDS: Famotidine 20 MG TAB PO SCH ×2 (08:16→20:37)
[2022-04-16] MEDS: Midodrine HCl 2.5 MG TAB PO SCH ×3 (08:16→20:36)
[2022-04-16] MEDS: Megestrol Acetate 400 MG/10 ML UDCUP PO SCH ×2 (08:16→20:37)
[2022-04-16] MEDS: Morphine 2 MG/ML VIAL SLOW IVP PRN (10:51)
[2022-04-16] MEDS: Lantus 1000 UNITS/10 ML VIAL SC SCH (20:35)
[2022-04-16] MEDS: Mirtazapine 15 MG TAB PO SCH (20:37)
[2022-04-16] MEDS: Micafungin 100 MG in Sodium Chloride 0.9% 100 ML IVPB SCH (20:38)
[2022-04-17] MEDS: Megestrol Acetate 400 MG/10 ML UDCUP PO SCH ×2 (08:19→20:42)
[2022-04-17] MEDS: Famotidine 20 MG TAB PO SCH ×2 (08:19→20:41)
[2022-04-17] MEDS: Nystatin 500,000 UNITS/5 ML UDCUP PO SCH ×4 (08:19→20:42)
[2022-04-17] MEDS: Midodrine HCl 2.5 MG TAB PO SCH ×3 (08:19→20:41)
[2022-04-17] MEDS: Enoxaparin Sodium 40 MG/0.4 ML SYRINGE SC SCH (08:19)
[2022-04-17] MEDS: Atorvastatin Calcium 40 MG TAB PO SCH (08:19)
[2022-04-17] MEDS: Aspirin 81 mg Enteric Coated Tablet PO SCH (08:19)
[2022-04-17] MEDS: HYDROcodone/Acetaminophen 10/325 mg Tablet PO PRN ×3 (08:20→20:55)
[2022-04-17] MEDS: Morphine 2 MG/ML VIAL SLOW IVP PRN (11:29)
[2022-04-17] MEDS: HumaLOG 300 UNITS/3 ML VIAL SC PRN ×2 (11:37→17:21)
[2022-04-17] MEDS: Mirtazapine 15 MG TAB PO SCH (20:41)
[2022-04-17] MEDS: Micafungin 100 MG in Sodium Chloride 0.9% 100 ML IVPB SCH (20:42)
[2022-04-17] MEDS: Lantus 1000 UNITS/10 ML VIAL SC SCH (20:43)
[2022-04-18] MEDS: HYDROcodone/Acetaminophen 5/325 mg Tablet PO PRN (06:11)
[2022-04-18] MEDS: Megestrol Acetate 400 MG/10 ML UDCUP PO SCH ×2 (07:56→21:50)
[2022-04-18] MEDS: Enoxaparin Sodium 40 MG/0.4 ML SYRINGE SC SCH (07:56)
[2022-04-18] MEDS: Nystatin 500,000 UNITS/5 ML UDCUP PO SCH ×4 (07:56→21:50)
[2022-04-18] MEDS: HumaLOG 300 UNITS/3 ML VIAL SC PRN ×3 (07:57→21:51)
[2022-04-18] MEDS: Famotidine 20 MG TAB PO SCH ×2 (07:57→21:49)
[2022-04-18] MEDS: Midodrine HCl 2.5 MG TAB PO SCH ×3 (07:57→21:49)
[2022-04-18] MEDS: Aspirin 81 mg Enteric Coated Tablet PO SCH (07:57)
[2022-04-18] MEDS: Atorvastatin Calcium 40 MG TAB PO SCH (07:57)
[2022-04-18] MEDS: Morphine 2 MG/ML VIAL SLOW IVP PRN (10:38)
[2022-04-18] MEDS: HYDROcodone/Acetaminophen 10/325 mg Tablet PO PRN ×2 (12:29→17:35)
[2022-04-18] MEDS: Micafungin 100 MG in Sodium Chloride 0.9% 100 ML IVPB SCH (21:49)
[2022-04-18] MEDS: Lantus 1000 UNITS/10 ML VIAL SC SCH (21:50)
[2022-04-18] MEDS: Mirtazapine 15 MG TAB PO SCH (21:50)
[2022-04-19] MEDS: HYDROcodone/Acetaminophen 10/325 mg Tablet PO PRN ×4 (05:08→20:23)
[2022-04-19] MEDS: Midodrine HCl 2.5 MG TAB PO SCH ×3 (08:30→20:23)
[2022-04-19] MEDS: Atorvastatin Calcium 40 MG TAB PO SCH (08:30)
[2022-04-19] MEDS: Nystatin 500,000 UNITS/5 ML UDCUP PO SCH ×4 (08:31→20:23)
[2022-04-19] MEDS: Megestrol Acetate 400 MG/10 ML UDCUP PO SCH ×2 (08:31→20:36)
[2022-04-19] MEDS: Aspirin 81 mg Enteric Coated Tablet PO SCH (08:31)
[2022-04-19] MEDS: Famotidine 20 MG TAB PO SCH ×2 (08:31→20:23)
[2022-04-19] MEDS: Enoxaparin Sodium 40 MG/0.4 ML SYRINGE SC SCH (08:31)
[2022-04-19] MEDS: Morphine 2 MG/ML VIAL SLOW IVP PRN ×3 (10:59→17:06)
[2022-04-19] MEDS ORDERED: Morphine 2 MG/ML VIAL SLOW IVP SCH ×2 (13:00→19:15)
[2022-04-19] MEDS: Mirtazapine 15 MG TAB PO SCH (20:23)
[2022-04-19] MEDS: Micafungin 100 MG in Sodium Chloride 0.9% 100 ML IVPB SCH (20:25)
[2022-04-19] MEDS: Lantus 1000 UNITS/10 ML VIAL SC SCH (21:55)
[2022-04-20] MEDS: Morphine 2 MG/ML VIAL SLOW IVP PRN ×4 (04:38→19:49)
[2022-04-20] MEDS: HYDROcodone/Acetaminophen 10/325 mg Tablet PO PRN ×3 (07:40→22:25)
[2022-04-20] MEDS: Famotidine 20 MG TAB PO SCH ×2 (08:28→21:18)
[2022-04-20] MEDS: Megestrol Acetate 400 MG/10 ML UDCUP PO SCH ×2 (08:28→21:18)
[2022-04-20] MEDS: Midodrine HCl 2.5 MG TAB PO SCH ×3 (08:28→21:16)
[2022-04-20] MEDS: Atorvastatin Calcium 40 MG TAB PO SCH (08:28)
[2022-04-20] MEDS: Nystatin 500,000 UNITS/5 ML UDCUP PO SCH ×4 (08:28→21:18)
[2022-04-20] MEDS: Aspirin 81 mg Enteric Coated Tablet PO SCH (08:28)
[2022-04-20] MEDS: Enoxaparin Sodium 40 MG/0.4 ML SYRINGE SC SCH (08:28)
[2022-04-20] MEDS: Micafungin 100 MG in Sodium Chloride 0.9% 100 ML IVPB SCH (21:17)
[2022-04-20] MEDS: Mirtazapine 15 MG TAB PO SCH (21:21)
[2022-04-20] MEDS: Lantus 1000 UNITS/10 ML VIAL SC SCH (21:26)
[2022-04-21 05:19] LABS: #Basophils 0.2 thou/uL (0.0-0.2); #Eosinphils 0.5 thou/uL (0.0-0.7); #Lymphocytes 2.4 thou/uL (1.20-3.40); #Monocytes 1.4 thou/uL (0.11-0.59); #Neutrophils 14.2 thou/uL (1.40-6.50); %Basophils 1.1 % (0.0-1.0); %Eosinophils 2.7 % (0.0-10.0); %Lymphocytes 12.7 % (21.0-51.0); %Monocytes 7.3 % (0.0-10.0); %Neutrophils 76.3 % (42.0-75.0); Hemoglobin 9.6 g/dL (14.0-18.0); Mean Corpuscular HGB CONC 32.1 g/dL (32.0-36.0); Mean Corpuscular Hemoglobin 28.1 pg (27.0-31.0); Mean Corpuscular Volume 87.6 fL (78.0-98.0); Mean Platelet Volume 9.6 fL (7.4-10.4); Platelet Count 376 thou/uL (130-400); RBC Distribution Width 14.8 % (11.5-14.5); Red Blood Cell (RBC) Count 3.43 mill/uL (4.70-6.10); White Blood Cell (WBC) Count 18.6 thou/uL (4.8-10.8)
[2022-04-21 05:37] LABS: ALT (SGPT) Less than 7 U/L (8-55); AST (SGOT) 8 U/L (5-34); Albumin 2.9 g/dL (3.4-4.8); Alkaline Phosphatase 88 U/L (40-110); Anion Gap 15 mmol/L (10-20); BUN (Urea Nitrogen) 31 mg/dL (8.4-25.7); Bilirubin, Total 0.4 mg/dL (0.2-1.2); CRP (Inflammatory) 19.69 mg/dL (= or < 0.5); Calc. Creatinine Clearance 79 mL/min (70-130); Calcium 9.3 mg/dL (7.8-10.44); Carbon Dioxide 21 mmol/L (23-31); Chloride 107 mmol/L (98-107); Estimated GFR 84; Globulin 4.5 g/dL (2.4-3.5); Glucose 200 mg/dL (80-115); Potassium 4.6 mmol/L (3.5-5.1); Protein, Total 7.4 g/dL (5.8-8.1); Sodium 138 mmol/L (136-145)
[2022-04-21] MEDS: Atorvastatin Calcium 40 MG TAB PO SCH (08:21)
[2022-04-21] MEDS: Aspirin 81 mg Enteric Coated Tablet PO SCH (08:21)
[2022-04-21] MEDS: Famotidine 20 MG TAB PO SCH ×2 (08:21→20:48)
[2022-04-21] MEDS: HYDROcodone/Acetaminophen 10/325 mg Tablet PO PRN ×3 (08:21→18:00)
[2022-04-21] MEDS: Midodrine HCl 2.5 MG TAB PO SCH ×3 (08:21→20:48)
[2022-04-21] MEDS: Enoxaparin Sodium 40 MG/0.4 ML SYRINGE SC SCH (08:22)
[2022-04-21] MEDS: Megestrol Acetate 400 MG/10 ML UDCUP PO SCH ×2 (08:22→20:48)
[2022-04-21] MEDS: Nystatin 500,000 UNITS/5 ML UDCUP PO SCH ×4 (08:22→20:48)
[2022-04-21 09:08] LABS: Bilirubin Negative (Negative); Blood, Urine Trace (Negative); Clarity Clear (Clear); Glucose, Urine (Dipstick) Negative (Negative); Ketone, Urine Negative (Negative); Leukocyte Small (Negative); Nitrite Negative (Negative); Protein, Urine (Dipstick) 30 mg/dL (Neg-Trace); Specific Gravity, Urine 1.015 (1.005-1.030)
[2022-04-21 09:14] LABS: Bacteria/HPF None Seen HPF (None Seen); Other Microscopic Description C&S SET UP; RBC/HPF 0-3 HPF (0-3); Squamous Epithelial 0-3 HPF (0-3)
[2022-04-21] MEDS: Morphine 4 MG/ML VIAL SLOW IVP PRN (12:23)
[2022-04-21] MEDS: Morphine 2 MG/ML VIAL SLOW IVP PRN (17:16)
[2022-04-21] MEDS: Micafungin 100 MG in Sodium Chloride 0.9% 100 ML IVPB SCH (20:48)
[2022-04-21] MEDS: Mirtazapine 15 MG TAB PO SCH (20:48)
[2022-04-21] MEDS: Lantus 1000 UNITS/10 ML VIAL SC SCH (20:49)
[2022-04-22] MEDS: Morphine 2 MG/ML VIAL SLOW IVP PRN ×2 (04:51→08:30)
[2022-04-22 05:20] LABS: #Basophils 0.1 thou/uL (0.0-0.2); #Eosinphils 0.4 thou/uL (0.0-0.7); #Lymphocytes 2.9 thou/uL (1.20-3.40); #Monocytes 1.5 thou/uL (0.11-0.59); #Neutrophils 14.6 thou/uL (1.40-6.50); %Basophils 0.5 % (0.0-1.0); %Eosinophils 2.3 % (0.0-10.0); %Lymphocytes 14.7 % (21.0-51.0); %Monocytes 7.5 % (0.0-10.0); Hemoglobin 9.8 g/dL (14.0-18.0); Mean Corpuscular HGB CONC 31.7 g/dL (32.0-36.0); Mean Corpuscular Hemoglobin 27.7 pg (27.0-31.0); Mean Corpuscular Volume 87.4 fL (78.0-98.0); Mean Platelet Volume 9.8 fL (7.4-10.4); Platelet Count 354 thou/uL (130-400); RBC Distribution Width 14.9 % (11.5-14.5); Red Blood Cell (RBC) Count 3.53 mill/uL (4.70-6.10); White Blood Cell (WBC) Count 19.5 thou/uL (4.8-10.8)
[2022-04-22 05:36] LABS: Anion Gap 18 mmol/L (10-20); BUN (Urea Nitrogen) 28 mg/dL (8.4-25.7); Calc. Creatinine Clearance 77 mL/min (70-130); Calcium 9.2 mg/dL (7.8-10.44); Carbon Dioxide 20 mmol/L (23-31); Chloride 106 mmol/L (98-107); Estimated GFR 81; Glucose 147 mg/dL (80-115); Potassium 4.5 mmol/L (3.5-5.1); Sodium 139 mmol/L (136-145)
[2022-04-22] MEDS: HYDROcodone/Acetaminophen 10/325 mg Tablet PO PRN ×3 (07:48→20:54)
[2022-04-22] MEDS: Famotidine 20 MG TAB PO SCH ×2 (08:10→20:54)
[2022-04-22] MEDS: Aspirin 81 mg Enteric Coated Tablet PO SCH (08:10)
[2022-04-22] MEDS: Megestrol Acetate 400 MG/10 ML UDCUP PO SCH ×2 (08:10→20:54)
[2022-04-22] MEDS: Enoxaparin Sodium 40 MG/0.4 ML SYRINGE SC SCH (08:10)
[2022-04-22] MEDS: Nystatin 500,000 UNITS/5 ML UDCUP PO SCH ×4 (08:10→20:54)
[2022-04-22] MEDS: Midodrine HCl 2.5 MG TAB PO SCH ×3 (08:11→20:53)
[2022-04-22] MEDS: Atorvastatin Calcium 40 MG TAB PO SCH (08:11)
[2022-04-22] MEDS: Morphine 4 MG/ML VIAL SLOW IVP PRN (13:16)
[2022-04-22] MEDS: Cefepime 2 GM in Sodium Chloride 0.9% 100 ML IVPB SCH (15:41)
[2022-04-22] MEDS ORDERED: Vancomycin HCl 1 GM in Sodium Chloride 0.9% 250 ML 250 ML IVPB SCH ×2 (17:00→21:00)
[2022-04-22] MEDS ORDERED: Vancomycin HCl 750 MG in Sodium Chloride 0.9% 250 ML 250 ML IVPB SCH (18:00)
[2022-04-22] MEDS: Mirtazapine 15 MG TAB PO SCH (20:54)
[2022-04-22] MEDS: Lantus 1000 UNITS/10 ML VIAL SC SCH (20:58)
[2022-04-22] MEDS: HumaLOG 300 UNITS/3 ML VIAL SC PRN (21:00)
[2022-04-22] MEDS: Micafungin 100 MG in Sodium Chloride 0.9% 100 ML IVPB SCH (21:16)
[2022-04-23] MEDS: Cefepime 2 GM in Sodium Chloride 0.9% 100 ML IVPB SCH ×2 (04:25→15:23)
[2022-04-23 05:22] LABS: #Basophils 0.2 thou/uL (0.0-0.2); #Eosinphils 0.5 thou/uL (0.0-0.7); #Lymphocytes 2.4 thou/uL (1.20-3.40); #Monocytes 1.4 thou/uL (0.11-0.59); #Neutrophils 13.5 thou/uL (1.40-6.50); %Basophils 1.1 % (0.0-1.0); %Eosinophils 2.7 % (0.0-10.0); %Lymphocytes 13.5 % (21.0-51.0); %Monocytes 7.7 % (0.0-10.0); Hemoglobin 9.6 g/dL (14.0-18.0); Mean Corpuscular HGB CONC 31.7 g/dL (32.0-36.0); Mean Corpuscular Hemoglobin 27.9 pg (27.0-31.0); Mean Platelet Volume 9.7 fL (7.4-10.4); Platelet Count 320 thou/uL (130-400); RBC Distribution Width 14.7 % (11.5-14.5); Red Blood Cell (RBC) Count 3.45 mill/uL (4.70-6.10)
[2022-04-23 05:34] LABS: Anion Gap 17 mmol/L (10-20); BUN (Urea Nitrogen) 28 mg/dL (8.4-25.7); Calc. Creatinine Clearance 87 mL/min (70-130); Carbon Dioxide 18 mmol/L (23-31); Chloride 109 mmol/L (98-107); Estimated GFR 94; Glucose 112 mg/dL (80-115); Potassium 4.5 mmol/L (3.5-5.1); Sodium 139 mmol/L (136-145)
[2022-04-23] MEDS: Enoxaparin Sodium 40 MG/0.4 ML SYRINGE SC SCH (08:21)
[2022-04-23] MEDS: Midodrine HCl 2.5 MG TAB PO SCH ×3 (08:22→21:52)
[2022-04-23] MEDS: Nystatin 500,000 UNITS/5 ML UDCUP PO SCH ×4 (08:22→21:52)
[2022-04-23] MEDS: Megestrol Acetate 400 MG/10 ML UDCUP PO SCH ×2 (08:22→21:52)
[2022-04-23] MEDS: HYDROcodone/Acetaminophen 5/325 mg Tablet PO PRN ×2 (08:22→17:42)
[2022-04-23] MEDS: Famotidine 20 MG TAB PO SCH ×2 (08:23→21:52)
[2022-04-23] MEDS: Aspirin 81 mg Enteric Coated Tablet PO SCH (08:23)
[2022-04-23] MEDS: Atorvastatin Calcium 40 MG TAB PO SCH (08:23)
[2022-04-23] MEDS: Morphine 4 MG/ML VIAL SLOW IVP PRN (14:27)
[2022-04-23] MEDS: Vancomycin HCl 1 GM in Sodium Chloride 0.9% 250 ML 250 ML IVPB SCH (17:16)
[2022-04-23] MEDS ORDERED: Vancomycin HCl 750 MG in Sodium Chloride 0.9% 250 ML 250 ML IVPB SCH (18:00)
[2022-04-23] MEDS: HYDROcodone/Acetaminophen 10/325 mg Tablet PO PRN (21:52)
[2022-04-23] MEDS: Mirtazapine 15 MG TAB PO SCH (21:52)
[2022-04-23] MEDS: Micafungin 100 MG in Sodium Chloride 0.9% 100 ML IVPB SCH (21:52)
[2022-04-23] MEDS: Lantus 1000 UNITS/10 ML VIAL SC SCH (21:53)
[2022-04-23] MEDS: HumaLOG 300 UNITS/3 ML VIAL SC PRN (21:54)
[2022-04-24 05:21] LABS: #Basophils 0.1 thou/uL (0.0-0.2); #Eosinphils 0.4 thou/uL (0.0-0.7); #Lymphocytes 2.6 thou/uL (1.20-3.40); #Monocytes 1.3 thou/uL (0.11-0.59); #Neutrophils 12.3 thou/uL (1.40-6.50); %Basophils 0.8 % (0.0-1.0); %Eosinophils 2.6 % (0.0-10.0); %Lymphocytes 15.2 % (21.0-51.0); %Monocytes 7.9 % (0.0-10.0); %Neutrophils 73.5 % (42.0-75.0); Hemoglobin 9.7 g/dL (14.0-18.0); Mean Corpuscular HGB CONC 32.2 g/dL (32.0-36.0); Mean Corpuscular Hemoglobin 28.1 pg (27.0-31.0); Mean Corpuscular Volume 87.4 fL (78.0-98.0); Mean Platelet Volume 9.3 fL (7.4-10.4); Platelet Count 326 thou/uL (130-400); RBC Distribution Width 14.8 % (11.5-14.5); Red Blood Cell (RBC) Count 3.43 mill/uL (4.70-6.10); White Blood Cell (WBC) Count 16.8 thou/uL (4.8-10.8)
[2022-04-24] MEDS: Cefepime 2 GM in Sodium Chloride 0.9% 100 ML IVPB SCH ×2 (05:35→16:06)
[2022-04-24] MEDS: HYDROcodone/Acetaminophen 10/325 mg Tablet PO PRN (05:36)
[2022-04-24] MEDS: Megestrol Acetate 400 MG/10 ML UDCUP PO SCH ×2 (08:27→20:58)
[2022-04-24] MEDS: Midodrine HCl 2.5 MG TAB PO SCH ×3 (08:27→20:58)
[2022-04-24] MEDS: Atorvastatin Calcium 40 MG TAB PO SCH (08:28)
[2022-04-24] MEDS: Aspirin 81 mg Enteric Coated Tablet PO SCH (08:28)
[2022-04-24] MEDS: Enoxaparin Sodium 40 MG/0.4 ML SYRINGE SC SCH (08:28)
[2022-04-24] MEDS: Nystatin 500,000 UNITS/5 ML UDCUP PO SCH ×4 (08:28→20:58)
[2022-04-24] MEDS: Famotidine 20 MG TAB PO SCH ×2 (08:28→20:59)
[2022-04-24] MEDS: Morphine 4 MG/ML VIAL SLOW IVP PRN (11:07)
[2022-04-24] MEDS: Morphine 2 MG/ML VIAL SLOW IVP PRN (16:07)
[2022-04-24 16:46] LABS: Vancomycin, Trough 20.9 ug/mL
[2022-04-24] MEDS: Vancomycin HCl 1 GM in Sodium Chloride 0.9% 250 ML 250 ML IVPB SCH (17:26)
[2022-04-24] MEDS: Vancomycin HCl 500 MG in Sodium Chloride 0.9% 250 ML 250 ML IVPB SCH (17:27)
[2022-04-24] MEDS: HumaLOG 300 UNITS/3 ML VIAL SC PRN (17:45)
[2022-04-24] MEDS: Mirtazapine 15 MG TAB PO SCH (20:59)
[2022-04-24] MEDS: Lantus 1000 UNITS/10 ML VIAL SC SCH (21:00)
[2022-04-25] MEDS: Morphine 2 MG/ML VIAL SLOW IVP PRN ×3 (03:19→19:48)
[2022-04-25] MEDS: Cefepime 2 GM in Sodium Chloride 0.9% 100 ML IVPB SCH ×2 (03:48→15:07)
[2022-04-25 05:54] LABS: #Basophils 0.2 thou/uL (0.0-0.2); #Eosinphils 0.3 thou/uL (0.0-0.7); #Lymphocytes 2.6 thou/uL (1.20-3.40); #Monocytes 0.8 thou/uL (0.11-0.59); %Basophils 1.5 % (0.0-1.0); %Eosinophils 2.4 % (0.0-10.0); %Lymphocytes 18.9 % (21.0-51.0); %Monocytes 5.7 % (0.0-10.0); %Neutrophils 71.5 % (42.0-75.0); Hemoglobin 9.3 g/dL (14.0-18.0); Mean Corpuscular HGB CONC 30.6 g/dL (32.0-36.0); Mean Corpuscular Hemoglobin 27.3 pg (27.0-31.0); Mean Platelet Volume 10.1 fL (7.4-10.4); Platelet Count 324 thou/uL (130-400); RBC Distribution Width 14.6 % (11.5-14.5); Red Blood Cell (RBC) Count 3.43 mill/uL (4.70-6.10); White Blood Cell (WBC) Count 13.9 thou/uL (4.8-10.8)
[2022-04-25 06:04] LABS: Anion Gap 16 mmol/L (10-20); BUN (Urea Nitrogen) 29 mg/dL (8.4-25.7); Calc. Creatinine Clearance 86 mL/min (70-130); Calcium 8.8 mg/dL (7.8-10.44); Carbon Dioxide 17 mmol/L (23-31); Chloride 108 mmol/L (98-107); Estimated GFR 93; Glucose 226 mg/dL (80-115); Potassium 4.5 mmol/L (3.5-5.1); Sodium 136 mmol/L (136-145)
[2022-04-25] MEDS: Famotidine 20 MG TAB PO SCH ×2 (08:48→21:54)
[2022-04-25] MEDS: Atorvastatin Calcium 40 MG TAB PO SCH (08:48)
[2022-04-25] MEDS: HumaLOG 300 UNITS/3 ML VIAL SC PRN (08:49)
[2022-04-25] MEDS: Aspirin 81 mg Enteric Coated Tablet PO SCH (08:49)
[2022-04-25] MEDS: Enoxaparin Sodium 40 MG/0.4 ML SYRINGE SC SCH (08:49)
[2022-04-25] MEDS: Nystatin 500,000 UNITS/5 ML UDCUP PO SCH ×4 (08:49→21:55)
[2022-04-25] MEDS: Megestrol Acetate 400 MG/10 ML UDCUP PO SCH ×2 (08:49→21:54)
[2022-04-25] MEDS: Midodrine HCl 2.5 MG TAB PO SCH ×3 (08:49→21:54)
[2022-04-25] MEDS: HYDROcodone/Acetaminophen 10/325 mg Tablet PO PRN ×2 (09:12→22:07)
[2022-04-25] MEDS: Vancomycin HCl 1 GM in Sodium Chloride 0.9% 250 ML 250 ML IVPB SCH (16:59)
[2022-04-25] MEDS: Vancomycin HCl 500 MG in Sodium Chloride 0.9% 250 ML 250 ML IVPB SCH (18:47)
[2022-04-25] MEDS: Mirtazapine 15 MG TAB PO SCH (21:54)
[2022-04-25] MEDS: Lantus 1000 UNITS/10 ML VIAL SC SCH (21:55)
[2022-04-26] MEDS: Cefepime 2 GM in Sodium Chloride 0.9% 100 ML IVPB SCH ×2 (03:03→16:04)
[2022-04-26] MEDS: Morphine 2 MG/ML VIAL SLOW IVP PRN ×2 (03:04→19:23)
[2022-04-26 05:23] LABS: #Basophils 0.2 thou/uL (0.0-0.2); #Eosinphils 0.5 thou/uL (0.0-0.7); #Lymphocytes 3.2 thou/uL (1.20-3.40); #Monocytes 1.1 thou/uL (0.11-0.59); #Neutrophils 13.7 thou/uL (1.40-6.50); %Eosinophils 2.5 % (0.0-10.0); %Lymphocytes 17.2 % (21.0-51.0); %Neutrophils 73.3 % (42.0-75.0); Hemoglobin 10.2 g/dL (14.0-18.0); Mean Corpuscular HGB CONC 31.6 g/dL (32.0-36.0); Mean Corpuscular Hemoglobin 27.8 pg (27.0-31.0); Mean Corpuscular Volume 87.9 fL (78.0-98.0); Mean Platelet Volume 9.1 fL (7.4-10.4); Platelet Count 337 thou/uL (130-400); RBC Distribution Width 14.6 % (11.5-14.5); Red Blood Cell (RBC) Count 3.66 mill/uL (4.70-6.10); White Blood Cell (WBC) Count 18.6 thou/uL (4.8-10.8)
[2022-04-26] MEDS: Midodrine HCl 2.5 MG TAB PO SCH ×2 (08:57→14:38)
[2022-04-26] MEDS: Famotidine 20 MG TAB PO SCH ×2 (08:57→20:40)
[2022-04-26] MEDS: Atorvastatin Calcium 40 MG TAB PO SCH (08:57)
[2022-04-26] MEDS: Aspirin 81 mg Enteric Coated Tablet PO SCH (08:57)
[2022-04-26] MEDS: Nystatin 500,000 UNITS/5 ML UDCUP PO SCH ×4 (08:58→20:40)
[2022-04-26] MEDS: Megestrol Acetate 400 MG/10 ML UDCUP PO SCH ×2 (08:58→20:39)
[2022-04-26] MEDS: Enoxaparin Sodium 40 MG/0.4 ML SYRINGE SC SCH (08:58)
[2022-04-26] MEDS: HYDROcodone/Acetaminophen 10/325 mg Tablet PO PRN ×2 (11:45→20:31)
[2022-04-26] MEDS: Morphine 4 MG/ML VIAL SLOW IVP PRN (14:38)
[2022-04-26 16:33] LABS: Vancomycin, Trough 21.7 ug/mL
[2022-04-26] MEDS: Vancomycin HCl 750 MG in Sodium Chloride 0.9% 250 ML 250 ML IVPB SCH (17:22)
[2022-04-26] MEDS: Vancomycin HCl 500 MG in Sodium Chloride 0.9% 100 ML IVPB SCH (18:20)
[2022-04-26] MEDS: Mirtazapine 15 MG TAB PO SCH (20:33)
[2022-04-26] MEDS: Lantus 1000 UNITS/10 ML VIAL SC SCH (20:40)
[2022-04-27] MEDS: Midodrine HCl 2.5 MG TAB PO SCH ×4 (01:14→21:44)
[2022-04-27] MEDS: Cefepime 2 GM in Sodium Chloride 0.9% 100 ML IVPB SCH ×2 (03:27→15:35)
[2022-04-27] MEDS: Atorvastatin Calcium 40 MG TAB PO SCH (09:46)
[2022-04-27] MEDS: Nystatin 500,000 UNITS/5 ML UDCUP PO SCH ×5 (09:46→21:49)
[2022-04-27] MEDS: Aspirin 81 mg Enteric Coated Tablet PO SCH (09:46)
[2022-04-27] MEDS: Famotidine 20 MG TAB PO SCH ×2 (09:46→21:44)
[2022-04-27] MEDS: Megestrol Acetate 400 MG/10 ML UDCUP PO SCH ×3 (09:46→21:50)
[2022-04-27] MEDS: Enoxaparin Sodium 40 MG/0.4 ML SYRINGE SC SCH (09:48)
[2022-04-27] MEDS: Morphine 4 MG/ML VIAL SLOW IVP PRN (14:46)
[2022-04-27] MEDS: Vancomycin HCl 750 MG in Sodium Chloride 0.9% 250 ML 250 ML IVPB SCH (16:37)
[2022-04-27] MEDS: Vancomycin HCl 500 MG in Sodium Chloride 0.9% 100 ML IVPB SCH (17:42)
[2022-04-27] MEDS: HYDROcodone/Acetaminophen 10/325 mg Tablet PO PRN (18:08)
[2022-04-27] MEDS: Morphine 2 MG/ML VIAL SLOW IVP PRN (19:35)
[2022-04-27] MEDS: Mirtazapine 15 MG TAB PO SCH (21:44)
[2022-04-27] MEDS: Lantus 1000 UNITS/10 ML VIAL SC SCH (21:50)
[2022-04-28] MEDS: Morphine 2 MG/ML VIAL SLOW IVP PRN ×2 (03:23→12:10)
[2022-04-28] MEDS: Cefepime 2 GM in Sodium Chloride 0.9% 100 ML IVPB SCH (03:24)
[2022-04-28 05:31] LABS: Band 11 % (5-11); Hemoglobin 9.9 g/dL (14.0-18.0); Lymphocytes 18 % (21-51); MDiff Complete? YES; Mean Corpuscular HGB CONC 32.1 g/dL (32.0-36.0); Mean Corpuscular Hemoglobin 27.9 pg (27.0-31.0); Mean Corpuscular Volume 86.8 fL (78.0-98.0); Mean Platelet Volume 8.7 fL (7.4-10.4); Monocytes 4 % (0-10); Neutrophil 67 % (42-75); Platelet Count 316 thou/uL (130-400); RBC Distribution Width 14.7 % (11.5-14.5); RBC Morphology Normal; Red Blood Cell (RBC) Count 3.54 mill/uL (4.70-6.10); White Blood Cell (WBC) Count 22.8 thou/uL (4.8-10.8)
[2022-04-28 05:33] LABS: ALT (SGPT) Less than 7 U/L (8-55); AST (SGOT) 11 U/L (5-34); Alkaline Phosphatase 93 U/L (40-110); Anion Gap 15 mmol/L (10-20); BUN (Urea Nitrogen) 37 mg/dL (8.4-25.7); Bilirubin, Total 0.5 mg/dL (0.2-1.2); CRP (Inflammatory) 4.41 mg/dL (= or < 0.5); Calc. Creatinine Clearance 81 mL/min (70-130); Calcium 9.3 mg/dL (7.8-10.44); Carbon Dioxide 16 mmol/L (23-31); Chloride 110 mmol/L (98-107); Estimated GFR 86; Globulin 4.4 g/dL (2.4-3.5); Glucose 112 mg/dL (80-115); Potassium 4.3 mmol/L (3.5-5.1); Protein, Total 7.4 g/dL (5.8-8.1); Sodium 137 mmol/L (136-145)
[2022-04-28 07:07] VITALS: BP 124/76; TEMP 97.8
[2022-04-28] MEDS: Morphine 4 MG/ML VIAL SLOW IVP PRN (07:41)
[2022-04-28] MEDS: HYDROcodone/Acetaminophen 10/325 mg Tablet PO PRN ×2 (07:53→12:11)
[2022-04-28] MEDS: Midodrine HCl 2.5 MG TAB PO SCH (08:13)
[2022-04-28] MEDS: Atorvastatin Calcium 40 MG TAB PO SCH (08:13)
[2022-04-28] MEDS: Aspirin 81 mg Enteric Coated Tablet PO SCH (08:13)
[2022-04-28] MEDS: Megestrol Acetate 400 MG/10 ML UDCUP PO SCH (08:13)
[2022-04-28] MEDS: Enoxaparin Sodium 40 MG/0.4 ML SYRINGE SC SCH (08:13)
[2022-04-28] MEDS: Nystatin 500,000 UNITS/5 ML UDCUP PO SCH (08:14)
[2022-04-28] MEDS: Famotidine 20 MG TAB PO SCH (08:14)
[2022-04-28] MEDS ORDERED: Morphine 4 MG/ML VIAL SLOW IVP SCH (09:00)
== END 2022-04-28 12:20 | disposition short-term general hospital (02) | DRG 871 ==
LOC: MADMS 19:33
PROVIDERS: ADMIT Family Medicine; ATTEND Family Medicine
DX: B37.7 Candidal sepsis (principal); L89.154 Pressure ulcer of sacral region, stage 4; N17.9 Acute kidney failure, unspecified; Z20.822 Contact with and (suspected) exposure to COVID-19; R65.20 Severe sepsis without septic shock; E11.9 Type 2 diabetes mellitus without complications; R53.1 Weakness; R33.9 Retention of urine, unspecified; Z66 Do not resuscitate; B37.49 Other urogenital candidiasis; R13.10 Dysphagia, unspecified; F32.A Depression, unspecified; Z79.899 Other long term (current) drug therapy; Z89.512 Acquired absence of left leg below knee; Z79.82 Long term (current) use of aspirin; Z79.4 Long term (current) use of insulin; Z74.01 Bed confinement status
CPT/HCPCS: 36415; 36416; 71045; 80048; 80053; 80202; 81001; 85025; 85652; 86140; 87040; 87086; 87811; J0692; J1650; J1815; J2248; J2270; J2405; J3370; J3490; J7050

== ENCOUNTER 2022-05-05 07:40 | Inpatient (IN) | payer OTHER, MEDICARE ==
[2022-05-05 15:21] LABS: Bilirubin Negative (Negative); Blood, Urine Large (Negative); Glucose, Urine (Dipstick) Negative (Negative); Ketone, Urine Trace mg/dL (Negative); Leukocyte Large (Negative); Nitrite Negative (Negative); Protein, Urine (Dipstick) > or equal to 300 mg/dL (Neg-Trace); Specific Gravity, Urine 1.025 (1.005-1.030); Urobilinogen 0.2 mg/dL (Less than 2); pH, Urine 5.5 (5.0-9.0)
[2022-05-05 15:40] LABS: Clarity Cloudy (Clear)
[2022-05-05 15:41] LABS: Bacteria/HPF Rare-Few HPF (None Seen); RBC/HPF Greater than 50 HPF (0-3); Squamous Epithelial 0-3 HPF (0-3); WBC/HPF Greater Than 50 HPF (0-3)
[2022-05-05 15:42] LABS: Calcium Oxalate Crystals 1+ HPF (None Seen); Yeast-Budding 3+ HPF (None Seen); Yeast-Hyphae 4+ HPF (None Seen)
[2022-05-05 15:48] LABS: SARS-CoV-2 NAA Rapid Test Not Detected (NotDetected)
[2022-05-05 15:55] LABS: Urine Culture Reflex Yes Yes
[2022-05-05 16:19] VITALS: BMI 23.2
[2022-05-05] MEDS ORDERED: Ondansetron ODT 4 MG TAB PO PRN (18:31)
[2022-05-05] MEDS ORDERED: Acetaminophen 325 MG TAB PO PRN (18:47)
[2022-05-05] MEDS: Morphine ER 15 MG TAB PO SCH (20:32)
[2022-05-05] MEDS: Sodium Bicarbonate Tab 325 MG TAB PO SCH (20:34)
[2022-05-05] MEDS: Senokot S 8.6-50 MG TAB PO SCH (20:35)
[2022-05-05] MEDS: Atorvastatin Calcium 40 MG TAB PO SCH (20:35)
[2022-05-05] MEDS: metroNIDAZOLE 250 MG TAB PO SCH (20:36)
[2022-05-05] MEDS: Lantus 1000 UNITS/10 ML VIAL SC SCH (20:36)
[2022-05-05] MEDS: Famotidine 20 MG TAB PO SCH (20:36)
[2022-05-05] MEDS: Megestrol Acetate 400 MG/10 ML UDCUP PO SCH (20:37)
[2022-05-05] MEDS: Nystatin 500,000 UNITS/5 ML UDCUP SSW SCH (20:37)
[2022-05-05] MEDS: Cefepime 2 GM in Sodium Chloride 0.9% 100 ML IVPB SCH (21:00)
[2022-05-05] MEDS: Midodrine HCl 2.5 MG TAB PO SCH (21:01)
[2022-05-05] MEDS ORDERED: Cefepime 2 GM VIAL IVPB SCH (22:00)
[2022-05-06] MEDS: Cefepime 2 GM in Sodium Chloride 0.9% 100 ML IVPB SCH ×3 (04:59→21:03)
[2022-05-06] MEDS: Midodrine HCl 2.5 MG TAB PO SCH ×3 (04:59→21:03)
[2022-05-06 06:20] LABS: #Basophils 0.2 thou/uL (0.0-0.2); #Eosinphils 0.5 thou/uL (0.0-0.7); #Lymphocytes 2.8 thou/uL (1.20-3.40); #Monocytes 1.3 thou/uL (0.11-0.59); #Neutrophils 14.3 thou/uL (1.40-6.50); %Basophils 1.2 % (0.0-1.0); %Eosinophils 2.8 % (0.0-10.0); %Lymphocytes 14.7 % (21.0-51.0); %Monocytes 6.6 % (0.0-10.0); %Neutrophils 74.7 % (42.0-75.0); Hemoglobin 10.2 g/dL (14.0-18.0); Mean Corpuscular Hemoglobin 29.3 pg (27.0-31.0); Mean Corpuscular Volume 91.5 fL (78.0-98.0); Mean Platelet Volume 8.8 fL (7.4-10.4); Platelet Count 365 thou/uL (130-400); RBC Distribution Width 15.7 % (11.5-14.5); Red Blood Cell (RBC) Count 3.49 mill/uL (4.70-6.10); White Blood Cell (WBC) Count 19.2 thou/uL (4.8-10.8)
[2022-05-06 06:37] LABS: Albumin 2.9 g/dL (3.4-4.8); Anion Gap 14 mmol/L (10-20); BUN (Urea Nitrogen) 37 mg/dL (8.4-25.7); Bilirubin, Total 0.3 mg/dL (0.2-1.2); Calc. Creatinine Clearance 49 mL/min (70-130); Calcium 9.2 mg/dL (7.8-10.44); Carbon Dioxide 18 mmol/L (23-31); Chloride 115 mmol/L (98-107); Estimated GFR 53; Globulin 4.3 g/dL (2.4-3.5); Glucose 187 mg/dL (80-115); Potassium 4.1 mmol/L (3.5-5.1); Protein, Total 7.2 g/dL (5.8-8.1); Sodium 143 mmol/L (136-145)
[2022-05-06 06:38] LABS: ALT (SGPT) 8 U/L (8-55); AST (SGOT) 15 U/L (5-34); Alkaline Phosphatase 86 U/L (40-110); CRP (Inflammatory) 2.75 mg/dL (= or < 0.5)
[2022-05-06] MEDS: Morphine ER 15 MG TAB PO SCH ×2 (08:13→20:46)
[2022-05-06] MEDS: Sodium Bicarbonate Tab 325 MG TAB PO SCH ×3 (08:15→20:48)
[2022-05-06] MEDS: Aspirin 81 mg Enteric Coated Tablet PO SCH (08:15)
[2022-05-06] MEDS: Nystatin 500,000 UNITS/5 ML UDCUP SSW SCH ×4 (08:15→20:45)
[2022-05-06] MEDS: Senokot S 8.6-50 MG TAB PO SCH ×2 (08:15→20:45)
[2022-05-06] MEDS: metroNIDAZOLE 250 MG TAB PO SCH ×2 (08:15→20:48)
[2022-05-06] MEDS: Polyethylene Glycol 3350 17 GM Packet PO SCH (08:15)
[2022-05-06] MEDS: Famotidine 20 MG TAB PO SCH ×2 (08:15→20:48)
[2022-05-06] MEDS: Megestrol Acetate 400 MG/10 ML UDCUP PO SCH ×2 (08:15→20:45)
[2022-05-06] MEDS ORDERED: FLU VACC QS2022-23(65YR UP)/PF 240 MCG/0.7 ML SYRINGE IM ONE (09:00)
[2022-05-06] MEDS: HYDROcodone/Acetaminophen 5/325 mg Tablet PO PRN (11:50)
[2022-05-06] MEDS: Atorvastatin Calcium 40 MG TAB PO SCH (20:48)
[2022-05-06] MEDS: Lantus 1000 UNITS/10 ML VIAL SC SCH (20:49)
[2022-05-07] MEDS: Midodrine HCl 2.5 MG TAB PO SCH ×3 (05:50→21:43)
[2022-05-07] MEDS: Cefepime 2 GM in Sodium Chloride 0.9% 100 ML IVPB SCH ×3 (05:51→21:43)
[2022-05-07] MEDS: HYDROcodone/Acetaminophen 5/325 mg Tablet PO PRN (05:54)
[2022-05-07] MEDS: Morphine ER 15 MG TAB PO SCH ×2 (08:16→20:20)
[2022-05-07] MEDS: Sodium Bicarbonate Tab 325 MG TAB PO SCH ×3 (08:19→20:21)
[2022-05-07] MEDS: Aspirin 81 mg Enteric Coated Tablet PO SCH (08:19)
[2022-05-07] MEDS: Megestrol Acetate 400 MG/10 ML UDCUP PO SCH ×2 (08:20→20:19)
[2022-05-07] MEDS: Polyethylene Glycol 3350 17 GM Packet PO SCH (08:20)
[2022-05-07] MEDS: Nystatin 500,000 UNITS/5 ML UDCUP SSW SCH ×4 (08:20→20:21)
[2022-05-07] MEDS: Senokot S 8.6-50 MG TAB PO SCH ×2 (08:20→20:21)
[2022-05-07] MEDS: metroNIDAZOLE 250 MG TAB PO SCH ×2 (08:20→20:20)
[2022-05-07] MEDS: Famotidine 20 MG TAB PO SCH ×2 (08:20→20:19)
[2022-05-07] MEDS: Lantus 1000 UNITS/10 ML VIAL SC SCH (20:19)
[2022-05-07] MEDS: Atorvastatin Calcium 40 MG TAB PO SCH (20:19)
[2022-05-08] MEDS: Cefepime 2 GM in Sodium Chloride 0.9% 100 ML IVPB SCH ×3 (05:25→21:26)
[2022-05-08] MEDS: Midodrine HCl 2.5 MG TAB PO SCH ×3 (05:25→21:23)
[2022-05-08] MEDS: Sodium Bicarbonate Tab 325 MG TAB PO SCH ×3 (08:03→21:24)
[2022-05-08] MEDS: Polyethylene Glycol 3350 17 GM Packet PO SCH (08:03)
[2022-05-08] MEDS: Nystatin 500,000 UNITS/5 ML UDCUP SSW SCH ×4 (08:03→21:22)
[2022-05-08] MEDS: Megestrol Acetate 400 MG/10 ML UDCUP PO SCH ×2 (08:04→21:22)
[2022-05-08] MEDS: Senokot S 8.6-50 MG TAB PO SCH ×2 (08:04→21:25)
[2022-05-08] MEDS: Famotidine 20 MG TAB PO SCH ×2 (08:04→21:25)
[2022-05-08] MEDS: Morphine ER 15 MG TAB PO SCH ×2 (08:04→21:25)
[2022-05-08] MEDS: metroNIDAZOLE 250 MG TAB PO SCH ×2 (08:04→21:25)
[2022-05-08] MEDS: Aspirin 81 mg Enteric Coated Tablet PO SCH (08:04)
[2022-05-08] MEDS: Micafungin 100 MG in Sodium Chloride 0.9% 100 ML IVPB SCH (09:03)
[2022-05-08] MEDS: HYDROcodone/Acetaminophen 5/325 mg Tablet PO PRN ×2 (12:12→16:59)
[2022-05-08] MEDS: Lantus 1000 UNITS/10 ML VIAL SC SCH (21:22)
[2022-05-08] MEDS: Atorvastatin Calcium 40 MG TAB PO SCH (21:25)
[2022-05-09] MEDS: Cefepime 2 GM in Sodium Chloride 0.9% 100 ML IVPB SCH ×3 (05:17→22:37)
[2022-05-09] MEDS: Midodrine HCl 2.5 MG TAB PO SCH ×3 (05:17→22:38)
[2022-05-09] MEDS: Micafungin 100 MG in Sodium Chloride 0.9% 100 ML IVPB SCH (08:09)
[2022-05-09] MEDS: Megestrol Acetate 400 MG/10 ML UDCUP PO SCH ×3 (08:10→22:53)
[2022-05-09] MEDS: Nystatin 500,000 UNITS/5 ML UDCUP SSW SCH ×5 (08:10→22:53)
[2022-05-09] MEDS: Sodium Bicarbonate Tab 325 MG TAB PO SCH ×4 (08:10→22:52)
[2022-05-09] MEDS: Polyethylene Glycol 3350 17 GM Packet PO SCH (08:10)
[2022-05-09] MEDS: metroNIDAZOLE 250 MG TAB PO SCH ×3 (08:11→22:52)
[2022-05-09] MEDS: Famotidine 20 MG TAB PO SCH ×3 (08:11→22:35)
[2022-05-09] MEDS: Morphine ER 15 MG TAB PO SCH ×2 (08:11→20:29)
[2022-05-09] MEDS: Senokot S 8.6-50 MG TAB PO SCH ×2 (08:11→20:31)
[2022-05-09] MEDS: Aspirin 81 mg Enteric Coated Tablet PO SCH (08:11)
[2022-05-09] MEDS: HYDROcodone/Acetaminophen 5/325 mg Tablet PO PRN ×2 (09:31→14:54)
[2022-05-09] MEDS: Atorvastatin Calcium 40 MG TAB PO SCH (20:29)
[2022-05-09] MEDS: Lantus 1000 UNITS/10 ML VIAL SC SCH (22:36)
[2022-05-10] MEDS: Midodrine HCl 2.5 MG TAB PO SCH ×3 (05:46→21:52)
[2022-05-10] MEDS: Cefepime 2 GM in Sodium Chloride 0.9% 100 ML IVPB SCH ×3 (05:49→22:06)
[2022-05-10] MEDS: Morphine ER 15 MG TAB PO SCH ×2 (08:06→23:24)
[2022-05-10] MEDS: Micafungin 100 MG in Sodium Chloride 0.9% 100 ML IVPB SCH (08:14)
[2022-05-10] MEDS: Sodium Bicarbonate Tab 325 MG TAB PO SCH ×3 (08:21→21:52)
[2022-05-10] MEDS: Megestrol Acetate 400 MG/10 ML UDCUP PO SCH ×2 (08:22→21:50)
[2022-05-10] MEDS: Polyethylene Glycol 3350 17 GM Packet PO SCH (08:22)
[2022-05-10] MEDS: metroNIDAZOLE 250 MG TAB PO SCH ×2 (08:22→16:52)
[2022-05-10] MEDS: Senokot S 8.6-50 MG TAB PO SCH ×2 (08:22→21:51)
[2022-05-10] MEDS: Aspirin 81 mg Enteric Coated Tablet PO SCH (08:22)
[2022-05-10] MEDS: Famotidine 20 MG TAB PO SCH ×2 (08:22→21:50)
[2022-05-10] MEDS: Nystatin 500,000 UNITS/5 ML UDCUP SSW SCH ×4 (08:22→21:52)
[2022-05-10] MEDS: HYDROcodone/Acetaminophen 5/325 mg Tablet PO PRN (16:11)
[2022-05-10] MEDS: Atorvastatin Calcium 40 MG TAB PO SCH (21:50)
[2022-05-10] MEDS: Lantus 1000 UNITS/10 ML VIAL SC SCH (22:11)
[2022-05-11] MEDS: Cefepime 2 GM in Sodium Chloride 0.9% 100 ML IVPB SCH ×3 (05:31→21:29)
[2022-05-11] MEDS: Midodrine HCl 2.5 MG TAB PO SCH (05:37)
[2022-05-11] MEDS: Micafungin 100 MG in Sodium Chloride 0.9% 100 ML IVPB SCH (08:21)
[2022-05-11] MEDS: Morphine ER 15 MG TAB PO SCH ×2 (08:23→20:11)
[2022-05-11] MEDS: Aspirin 81 mg Enteric Coated Tablet PO SCH (08:30)
[2022-05-11] MEDS: Megestrol Acetate 400 MG/10 ML UDCUP PO SCH (08:30)
[2022-05-11] MEDS: Sodium Bicarbonate Tab 325 MG TAB PO SCH ×3 (08:30→20:25)
[2022-05-11] MEDS: Senokot S 8.6-50 MG TAB PO SCH ×2 (08:30→20:24)
[2022-05-11] MEDS: Famotidine 20 MG TAB PO SCH ×2 (08:30→20:13)
[2022-05-11] MEDS: metroNIDAZOLE 250 MG TAB PO SCH ×2 (08:31→16:28)
[2022-05-11] MEDS: Nystatin 500,000 UNITS/5 ML UDCUP SSW SCH ×4 (08:31→20:24)
[2022-05-11] MEDS: Polyethylene Glycol 3350 17 GM Packet PO SCH (08:31)
[2022-05-11] MEDS: HYDROcodone/Acetaminophen 5/325 mg Tablet PO PRN (14:34)
[2022-05-11] MEDS: Dronabinol 2.5 MG CAP PO SCH (16:28)
[2022-05-11] MEDS: Mirtazapine 15 MG TAB PO SCH (20:11)
[2022-05-11] MEDS: Lantus 1000 UNITS/10 ML VIAL SC SCH (20:22)
[2022-05-12] MEDS: Cefepime 2 GM in Sodium Chloride 0.9% 100 ML IVPB SCH ×3 (05:41→21:51)
[2022-05-12 07:28] LABS: SARS-CoV-2 NAA Rapid Test Not Detected (NotDetected)
[2022-05-12] MEDS: Nystatin 500,000 UNITS/5 ML UDCUP SSW SCH ×4 (08:41→20:44)
[2022-05-12] MEDS: Aspirin 81 mg Enteric Coated Tablet PO SCH (08:41)
[2022-05-12] MEDS: Morphine ER 15 MG TAB PO SCH ×2 (08:42→20:44)
[2022-05-12] MEDS: Dronabinol 2.5 MG CAP PO SCH ×3 (08:42→18:13)
[2022-05-12] MEDS: Micafungin 100 MG in Sodium Chloride 0.9% 100 ML IVPB SCH (08:43)
[2022-05-12] MEDS: Senokot S 8.6-50 MG TAB PO SCH ×2 (08:43→20:45)
[2022-05-12] MEDS: Polyethylene Glycol 3350 17 GM Packet PO SCH (08:43)
[2022-05-12] MEDS: Famotidine 20 MG TAB PO SCH ×2 (08:43→20:44)
[2022-05-12] MEDS: Sodium Bicarbonate Tab 325 MG TAB PO SCH ×3 (08:54→20:44)
[2022-05-12] MEDS: metroNIDAZOLE 250 MG TAB PO SCH ×2 (08:56→18:00)
[2022-05-12] MEDS: HYDROcodone/Acetaminophen 5/325 mg Tablet PO PRN (11:34)
[2022-05-12] MEDS: Lantus 1000 UNITS/10 ML VIAL SC SCH (20:45)
[2022-05-12] MEDS: Mirtazapine 15 MG TAB PO SCH (20:46)
[2022-05-13] MEDS: Cefepime 2 GM in Sodium Chloride 0.9% 100 ML IVPB SCH ×3 (05:14→21:05)
[2022-05-13 05:52] LABS: Band 10 % (5-11); Hemoglobin 12.3 g/dL (14.0-18.0); Lymphocytes 6 % (21-51); MDiff Complete? YES; Macrocytosis SLIGHT = 6-15 cells (100X) (0-5/hpf); Mean Corpuscular HGB CONC 32.4 g/dL (32.0-36.0); Mean Corpuscular Hemoglobin 29.5 pg (27.0-31.0); Mean Platelet Volume 9.5 fL (7.4-10.4); Metamyelocyte 1 % (0-0); Monocytes 7 % (0-10); Myelocyte 1 % (0-0); Neutrophil 74 % (42-75); Platelet Count 286 thou/uL (130-400); RBC Distribution Width 17.1 % (11.5-14.5); Reactive Lymphocytes 1 % (0-10); Red Blood Cell (RBC) Count 4.17 mill/uL (4.70-6.10); White Blood Cell (WBC) Count 20.6 thou/uL (4.8-10.8)
[2022-05-13 05:53] LABS: ALT (SGPT) Less than 7 U/L (8-55); AST (SGOT) 12 U/L (5-34); Albumin 2.9 g/dL (3.4-4.8); Alkaline Phosphatase 83 U/L (40-110); Anion Gap 16 mmol/L (10-20); BUN (Urea Nitrogen) 61 mg/dL (8.4-25.7); Bilirubin, Total 0.4 mg/dL (0.2-1.2); CRP (Inflammatory) 21.42 mg/dL (= or < 0.5); Calc. Creatinine Clearance 44 mL/min (70-130); Calcium 9.7 mg/dL (7.8-10.44); Carbon Dioxide 16 mmol/L (23-31); Chloride 119 mmol/L (98-107); Estimated GFR 47; Globulin 4.6 g/dL (2.4-3.5); Glucose 137 mg/dL (80-115); Potassium 3.5 mmol/L (3.5-5.1); Protein, Total 7.5 g/dL (5.8-8.1); Sodium 147 mmol/L (136-145)
[2022-05-13] MEDS: metroNIDAZOLE 250 MG TAB PO SCH ×2 (07:59→17:31)
[2022-05-13] MEDS: Aspirin 81 mg Enteric Coated Tablet PO SCH (07:59)
[2022-05-13] MEDS: Dronabinol 2.5 MG CAP PO SCH ×2 (07:59→17:31)
[2022-05-13] MEDS: Nystatin 500,000 UNITS/5 ML UDCUP SSW SCH ×4 (08:00→20:41)
[2022-05-13] MEDS: Polyethylene Glycol 3350 17 GM Packet PO SCH (08:00)
[2022-05-13] MEDS: Sodium Bicarbonate Tab 325 MG TAB PO SCH ×3 (08:00→20:44)
[2022-05-13] MEDS: Morphine ER 15 MG TAB PO SCH ×2 (08:00→20:42)
[2022-05-13] MEDS: Senokot S 8.6-50 MG TAB PO SCH ×2 (08:00→20:42)
[2022-05-13] MEDS: Famotidine 20 MG TAB PO SCH ×2 (08:00→20:41)
[2022-05-13] MEDS: Micafungin 100 MG in Sodium Chloride 0.9% 100 ML IVPB SCH (09:22)
[2022-05-13] MEDS: Mirtazapine 15 MG TAB PO SCH (20:42)
[2022-05-13] MEDS: Lantus 1000 UNITS/10 ML VIAL SC SCH (20:43)
[2022-05-14] MEDS: Cefepime 2 GM in Sodium Chloride 0.9% 100 ML IVPB SCH ×3 (05:24→22:11)
[2022-05-14] MEDS: Morphine ER 15 MG TAB PO SCH ×2 (08:10→22:12)
[2022-05-14] MEDS: Dronabinol 2.5 MG CAP PO SCH ×2 (08:11→16:09)
[2022-05-14] MEDS: Polyethylene Glycol 3350 17 GM Packet PO SCH (08:20)
[2022-05-14] MEDS: Nystatin 500,000 UNITS/5 ML UDCUP SSW SCH ×4 (08:20→22:12)
[2022-05-14] MEDS: Micafungin 100 MG in Sodium Chloride 0.9% 100 ML IVPB SCH (08:21)
[2022-05-14] MEDS: Aspirin 81 mg Enteric Coated Tablet PO SCH (08:25)
[2022-05-14] MEDS: Famotidine 20 MG TAB PO SCH ×2 (08:25→22:13)
[2022-05-14] MEDS: Senokot S 8.6-50 MG TAB PO SCH ×2 (08:25→22:13)
[2022-05-14] MEDS: metroNIDAZOLE 250 MG TAB PO SCH ×2 (08:25→16:09)
[2022-05-14] MEDS: Sodium Bicarbonate Tab 325 MG TAB PO SCH ×3 (08:26→22:11)
[2022-05-14] MEDS: HYDROcodone/Acetaminophen 5/325 mg Tablet PO PRN ×2 (11:40→16:08)
[2022-05-14] MEDS: Lantus 1000 UNITS/10 ML VIAL SC SCH (22:13)
[2022-05-14] MEDS: Mirtazapine 15 MG TAB PO SCH (22:14)
[2022-05-15] MEDS: HYDROcodone/Acetaminophen 5/325 mg Tablet PO PRN ×3 (05:45→17:33)
[2022-05-15] MEDS: Cefepime 2 GM in Sodium Chloride 0.9% 100 ML IVPB SCH ×3 (05:47→22:17)
[2022-05-15] MEDS: Morphine ER 15 MG TAB PO SCH ×2 (08:01→22:14)
[2022-05-15] MEDS: Dronabinol 2.5 MG CAP PO SCH ×2 (08:02→16:11)
[2022-05-15] MEDS: Micafungin 100 MG in Sodium Chloride 0.9% 100 ML IVPB SCH (08:20)
[2022-05-15] MEDS: Sodium Bicarbonate Tab 325 MG TAB PO SCH ×3 (08:21→22:13)
[2022-05-15] MEDS: Aspirin 81 mg Enteric Coated Tablet PO SCH (08:21)
[2022-05-15] MEDS: Famotidine 20 MG TAB PO SCH ×2 (08:21→22:14)
[2022-05-15] MEDS: metroNIDAZOLE 250 MG TAB PO SCH ×2 (08:21→16:11)
[2022-05-15] MEDS: Senokot S 8.6-50 MG TAB PO SCH ×2 (08:21→22:14)
[2022-05-15] MEDS: Polyethylene Glycol 3350 17 GM Packet PO SCH (08:21)
[2022-05-15] MEDS: Nystatin 500,000 UNITS/5 ML UDCUP SSW SCH ×4 (08:21→22:16)
[2022-05-15] MEDS: Mirtazapine 15 MG TAB PO SCH (22:14)
[2022-05-15] MEDS: Lantus 1000 UNITS/10 ML VIAL SC SCH (22:16)
[2022-05-16] MEDS: Cefepime 2 GM in Sodium Chloride 0.9% 100 ML IVPB SCH ×2 (06:03→12:08)
[2022-05-16 08:25] LABS: #Basophils 0.2 thou/uL (0.0-0.2); #Lymphocytes 2.1 thou/uL (1.20-3.40); #Monocytes 1.6 thou/uL (0.11-0.59); #Neutrophils 21.5 thou/uL (1.40-6.50); %Basophils 0.7 % (0.0-1.0); %Eosinophils 0.1 % (0.0-10.0); %Lymphocytes 8.4 % (21.0-51.0); %Monocytes 6.4 % (0.0-10.0); %Neutrophils 84.5 % (42.0-75.0); Hemoglobin 10.6 g/dL (14.0-18.0); Mean Corpuscular HGB CONC 32.1 g/dL (32.0-36.0); Mean Corpuscular Hemoglobin 29.4 pg (27.0-31.0); Mean Corpuscular Volume 91.7 fL (78.0-98.0); Mean Platelet Volume 10.3 fL (7.4-10.4); Platelet Count 359 thou/uL (130-400); RBC Distribution Width 17.1 % (11.5-14.5); Red Blood Cell (RBC) Count 3.58 mill/uL (4.70-6.10); White Blood Cell (WBC) Count 25.5 thou/uL (4.8-10.8)
[2022-05-16 08:34] LABS: Anion Gap 16 mmol/L (10-20); BUN (Urea Nitrogen) 69 mg/dL (8.4-25.7); Calc. Creatinine Clearance 33 mL/min (70-130); Calcium 10.2 mg/dL (7.8-10.44); Carbon Dioxide 14 mmol/L (23-31); Estimated GFR 33; Glucose 115 mg/dL (80-115); Sodium 155 mmol/L (136-145)
[2022-05-16] MEDS: metroNIDAZOLE 250 MG TAB PO SCH (08:34)
[2022-05-16] MEDS: Dronabinol 2.5 MG CAP PO SCH ×2 (08:34→15:56)
[2022-05-16] MEDS: Famotidine 20 MG TAB PO SCH ×2 (08:36→20:20)
[2022-05-16] MEDS: Aspirin 81 mg Enteric Coated Tablet PO SCH (08:36)
[2022-05-16 08:49] LABS: Chloride 129 mmol/L (98-107)
[2022-05-16] MEDS: Sodium Bicarbonate Tab 325 MG TAB PO SCH ×3 (08:49→20:21)
[2022-05-16] MEDS: Polyethylene Glycol 3350 17 GM Packet PO SCH (08:49)
[2022-05-16] MEDS: Senokot S 8.6-50 MG TAB PO SCH (08:49)
[2022-05-16] MEDS: Morphine ER 15 MG TAB PO SCH ×2 (08:49→20:21)
[2022-05-16] MEDS: Micafungin 100 MG in Sodium Chloride 0.9% 100 ML IVPB SCH (09:44)
[2022-05-16] MEDS: Morphine 4 MG/ML VIAL SLOW IVP PRN ×2 (10:43→16:29)
[2022-05-16] MEDS ORDERED: Senokot S 8.6-50 MG TAB PO PRN (11:15)
[2022-05-16] MEDS ORDERED: Polyethylene Glycol 3350 17 GM Packet PO PRN (11:15)
[2022-05-16] MEDS: metroNIDAZOLE 500 MG in Premix Bag 1 BAG IVPB SCH (12:50)
[2022-05-16] MEDS: Lactated Ringer's 1,000 ML IV SCH ×2 (14:00→20:34)
[2022-05-16] MEDS: Lantus 1000 UNITS/10 ML VIAL SC SCH (20:35)
[2022-05-17] MEDS: Cefepime 2 GM in Sodium Chloride 0.9% 100 ML IVPB SCH (00:55)
[2022-05-17] MEDS: metroNIDAZOLE 500 MG in Premix Bag 1 BAG IVPB SCH ×2 (01:33→12:01)
[2022-05-17 05:18] LABS: #Basophils 0.1 thou/uL (0.0-0.2); #Monocytes 1.4 thou/uL (0.11-0.59); #Neutrophils 19.3 thou/uL (1.40-6.50); %Basophils 0.5 % (0.0-1.0); %Eosinophils 0.1 % (0.0-10.0); %Lymphocytes 8.9 % (21.0-51.0); %Monocytes 6.2 % (0.0-10.0); %Neutrophils 84.3 % (42.0-75.0); Hemoglobin 10.5 g/dL (14.0-18.0); Mean Corpuscular HGB CONC 31.1 g/dL (32.0-36.0); Mean Corpuscular Hemoglobin 29.1 pg (27.0-31.0); Mean Corpuscular Volume 93.7 fL (78.0-98.0); Mean Platelet Volume 9.7 fL (7.4-10.4); Platelet Count 356 thou/uL (130-400); RBC Distribution Width 17.5 % (11.5-14.5); Red Blood Cell (RBC) Count 3.62 mill/uL (4.70-6.10); White Blood Cell (WBC) Count 22.9 thou/uL (4.8-10.8)
[2022-05-17 05:35] LABS: Anion Gap 20 mmol/L (10-20); BUN (Urea Nitrogen) 78 mg/dL (8.4-25.7); Calc. Creatinine Clearance 25 mL/min (70-130); Calcium 10.6 mg/dL (7.8-10.44); Carbon Dioxide 12 mmol/L (23-31); Estimated GFR 24; Glucose 174 mg/dL (80-115); Potassium 3.6 mmol/L (3.5-5.1); Sodium 155 mmol/L (136-145)
[2022-05-17 05:41] LABS: Chloride 127 mmol/L (98-107)
[2022-05-17] MEDS: Lactated Ringer's 1,000 ML IV SCH ×3 (06:16→17:57)
[2022-05-17] MEDS: Dronabinol 2.5 MG CAP PO SCH (07:59)
[2022-05-17] MEDS: Micafungin 100 MG in Sodium Chloride 0.9% 100 ML IVPB SCH (09:45)
[2022-05-17] MEDS: Aspirin 81 mg Enteric Coated Tablet PO SCH (09:53)
[2022-05-17] MEDS: Famotidine 20 MG TAB PO SCH (09:53)
[2022-05-17] MEDS: Sodium Bicarbonate Tab 325 MG TAB PO SCH (09:53)
[2022-05-17] MEDS: Morphine ER 15 MG TAB PO SCH ×2 (09:53→20:53)
[2022-05-17] MEDS ORDERED: Cefepime 1 GM in Sodium Chloride 0.9% 100 ML IVPB SCH ×2 (11:00)
[2022-05-17] MEDS ORDERED: HumaLOG 300 UNITS/3 ML VIAL SC PRN (11:00)
[2022-05-17] MEDS: Artificial Tear Sol 15 ML BOT EA EYE PRN (11:14)
[2022-05-17] MEDS: Morphine 4 MG/ML VIAL SLOW IVP PRN (14:28)
[2022-05-18] MEDS: metroNIDAZOLE 500 MG in Premix Bag 1 BAG IVPB SCH ×2 (00:30→12:05)
[2022-05-18] MEDS: Lactated Ringer's 1,000 ML IV SCH ×3 (04:02→17:49)
[2022-05-18] MEDS: Artificial Tear Sol 15 ML BOT EA EYE PRN ×2 (04:02→09:27)
[2022-05-18] MEDS: Morphine ER 15 MG TAB PO SCH (09:26)
[2022-05-18] MEDS: Micafungin 100 MG in Sodium Chloride 0.9% 100 ML IVPB SCH ×3 (09:27→09:44)
[2022-05-18] MEDS ORDERED: Cefepime 1 GM VIAL ONE (10:11)
[2022-05-18] MEDS: Cefepime 1 GM in Sodium Chloride 0.9% 100 ML IVPB SCH (11:01)
[2022-05-18] MEDS: Morphine 4 MG/ML VIAL SLOW IVP PRN ×2 (11:16→20:16)
[2022-05-18] MEDS: Atropine Sulfate 1% Ophth Soln 5 ml Bottle PO PRN (12:07)
[2022-05-19] MEDS: metroNIDAZOLE 500 MG in Premix Bag 1 BAG IVPB SCH ×2 (00:50→14:22)
[2022-05-19] MEDS: Lactated Ringer's 1,000 ML IV SCH ×2 (08:07→14:35)
[2022-05-19] MEDS: Cefepime 1 GM in Sodium Chloride 0.9% 100 ML IVPB SCH (12:18)
[2022-05-19] MEDS: Morphine 4 MG/ML VIAL SLOW IVP PRN (13:47)
[2022-05-20] MEDS: metroNIDAZOLE 500 MG in Premix Bag 1 BAG IVPB SCH ×2 (00:34→13:41)
[2022-05-20] MEDS: Lactated Ringer's 1,000 ML IV SCH (05:10)
[2022-05-20] MEDS: Cefepime 1 GM in Sodium Chloride 0.9% 100 ML IVPB SCH (11:38)
[2022-05-21] MEDS: metroNIDAZOLE 500 MG in Premix Bag 1 BAG IVPB SCH (00:40)
[2022-05-21] MEDS: Lactated Ringer's 1,000 ML IV SCH ×2 (03:27→23:43)
[2022-05-21] MEDS: Morphine 4 MG/ML VIAL SLOW IVP PRN (10:56)
[2022-05-21] MEDS: Cefepime 1 GM in Sodium Chloride 0.9% 100 ML IVPB SCH (11:25)
[2022-05-22] MEDS: Cefepime 1 GM in Sodium Chloride 0.9% 100 ML IVPB SCH (12:15)
[2022-05-22] MEDS: Lactated Ringer's 1,000 ML IV SCH (18:03)
[2022-05-23] MEDS: Artificial Tear Sol 15 ML BOT EA EYE PRN (09:18)
[2022-05-23] MEDS: Morphine 4 MG/ML VIAL SLOW IVP PRN (10:22)
[2022-05-23] MEDS: Cefepime 1 GM in Sodium Chloride 0.9% 100 ML IVPB SCH (10:30)
[2022-05-23] MEDS: Lactated Ringer's 1,000 ML IV SCH (15:04)
[2022-05-24] MEDS: Atropine Sulfate 1% Ophth Soln 5 ml Bottle PO PRN ×2 (04:14→04:17)
[2022-05-24] MEDS: Morphine 2 MG/ML VIAL SLOW IVP PRN (04:18)
[2022-05-24] MEDS: Cefepime 1 GM in Sodium Chloride 0.9% 100 ML IVPB SCH (11:22)
[2022-05-24] MEDS: Lactated Ringer's 1,000 ML IV SCH (11:22)
[2022-05-25] MEDS: Lactated Ringer's 1,000 ML IV SCH ×2 (06:28→12:05)
[2022-05-25 07:09] VITALS: BP 64/37; TEMP 91.5
[2022-05-25] MEDS: Morphine 4 MG/ML VIAL SLOW IVP PRN (09:25)
[2022-05-25] MEDS: Cefepime 1 GM in Sodium Chloride 0.9% 100 ML IVPB SCH (10:25)
[2022-05-25] MEDS: Morphine 2 MG/ML VIAL SLOW IVP PRN (12:11)
== END 2022-05-25 13:55 | disposition expired | DRG 871 ==
LOC: MADMS 13:47
PROVIDERS: ADMIT Family Medicine; ATTEND Family Medicine
DX: A41.9 Sepsis, unspecified organism (principal); L89.154 Pressure ulcer of sacral region, stage 4; N17.0 Acute kidney failure with tubular necrosis; B37.0 Candidal stomatitis; E87.0 Hyperosmolality and hypernatremia; E87.20 Acidosis, unspecified; N39.0 Urinary tract infection, site not specified; Z66 Do not resuscitate; Z51.5 Encounter for palliative care; F32.A Depression, unspecified; E11.9 Type 2 diabetes mellitus without complications; F03.90 Unspecified dementia, unspecified severity, without behavioral disturbance, psychotic disturbance, mood disturbance, and anxiety; G89.29 Other chronic pain; Z89.512 Acquired absence of left leg below knee
CPT/HCPCS: 36415; 36416; 71045; 80048; 80053; 81001; 85025; 85652; 86140; 87040; 87086; 87811; 90471; 90662; 97602; G0008; J0692; J1815; J2248; J2270; J3490; J7120; Q0162; Q0167; U0002